=== PATIENT | female | born 1995 | race American Indian/Alaskan Native ===

== ENCOUNTER 2021-01-12 11:51 | Inpatient (IN) ==
[2021-01-12 12:52] LABS: Basophils # (auto) 0.01 K/uL (0-0.2); Basophils % (auto) 0.2 %; Eosinophils # (auto) 0.06 K/uL (0-0.5); Eosinophils % (auto) 1.3 %; Hematocrit (blood only) 41.3 % (37-47); Hemoglobin 13.7 g/dL (12.0-16.0); Immature Granulocytes # (auto) 0.02 K/uL (0.00-0.02); Immature Granulocytes % (auto) 0.4 %; Lymphocytes # (auto) 0.87 K/uL (1.2-3.4); Lymphocytes % (auto) 18.8 %; Mean Corpuscular Hemoglobin 27.9 pg (25-34); Mean Corpuscular Hgb Conc 33.2 g/dL (32-36); Mean Corpuscular Volume 84.1 fL (80-100); Mean Platelet Volume 9.1 fL (7.4-10.4); Monocytes # (auto) 0.46 K/uL (0.11-0.59); Monocytes % (auto) 9.9 %; Neutrophils # (auto) 3.21 K/uL (1.4-6.5); Neutrophils % (auto) 69.4 %; Platelet Count 283 K/uL (130-400); RDW Coefficient of Variation 12.7 % (11.5-14.5); RDW Standard Deviation 38.4 fL (36.4-46.3); Red Blood Count 4.91 M/uL (4.2-5.4); White Blood Count 4.63 K/uL (4.8-10.8)
[2021-01-12 13:08] LABS: Albumin Level 3.7 gm/dl (3.4-5.0); Blood Urea Nitrogen 7 mg/dl (7-18); Carbon Dioxide 26 mmol/L (21-32); Chloride 109 mmol/L (98-107); Est GFR (African American) 148.5 ml/min; Est GFR (Non-African American) 128.1 ml/min; Glucose 82 mg/dl (70-99); Potassium 4.8 mmol/L (3.5-5.1); Sodium 139 mmol/L (136-145)
[2021-01-12 13:11] LABS: Alanine Aminotransferase 20 U/L (12-78); Albumin Globulin Ratio 0.9 (0.9-2); Alkaline Phosphatase 69 U/L (45-117); Aspartate Aminotransferase 17 U/L (15-37); Bilirubin,Total 0.4 mg/dl (0.2-1); Globulin 4.3 gm/dl (2.5-4.0)
[2021-01-12 13:43] LABS: Creatine Kinase 42 U/L (26-192); Creatine Kinase MB < 1.0 ng/ml (0.5-3.6); NT Pro B Type Natriuretic Pept 39 pg/ml (0-450); Troponin I < 0.015 ng/ml (0-0.045)
[2021-01-12] MEDS ORDERED: OPTIRAY 320 125ml IV ONE (13:57)
--- NOTE | 2021-01-12 14:16 | CT Scan Report ---
CT angio chest PE protocol CT DOSE: 362.62 mGycm HISTORY: 25 years-old Female with PE. Acute cough with shortness of breath TECHNIQUE: Multiple CTA images of the chest were obtained after the intravenous administration of 120 ml Optiray. Coronal and sagittal MIPS were obtained from the axial data set and were submitted for review. All measurements were obtained according to NASCET criteria. A dose lowering technique was u tilized adhering to the principles of ALARA. COMPARISON: None. FINDINGS: CTA: The heart is normal in size. No pericardial effusion. There is no thoracic aortic aneurysm or dissect ion. There is patency of the imaged great vessels. No pulmonary emboli identified. Streak artifact fr om the contrast bolus within the right subclavian and brachycephalic veins and SVC limits the study. CT CHEST: Unremarkable thyroid. No adenopathy identified. Small left pleural effusion with mild linear subsegme ntal left lung base consolidation and left basilar groundglass densities suggestive of atelectasis. T here is atelectasis with near complete collapse of the right lung. A small portion of the right upper lobe and superior segment right lower lobe are aerated. No obstructing endobronchial mass identified . No pleural mass identified. There is leftward midline shift. No acute process of the imaged upper abdomen. There is no pneumoperitoneum. Unremarkable soft tissues and breast parenchyma. No acute fracture. IMPRESSION: 1. No pulmonary emboli. 2. Large right pleural effusion occupies the majority of the right hemithorax resulting in near-compl ete collapse of the right lung. There is resultant leftward midline shift. 3. Small left pleural effusion with left lung base atelectasis. 4. No adenopathy. ACT 112: Negative or not required by law. The above report was generated using voice recognition software. It may contain grammatical, syntax o r spelling errors. Electronically signed by: Baldomero Carl M.D. 01/12/2021 2:14 PM
[2021-01-12] MEDS ORDERED: LIDOCAINE 1% LOCAL 20 ML VIAL ONE (15:47)
--- NOTE | 2021-01-12 16:17 | History & Physical Report ---
Date of Service January 12, 2021 Assessment & Plan (1) Pleural effusion: Presents with several weeks of upper back and anterior rib pain followed by shortness of breath, found to have very large right-sided pleural effusion and small left pleural effusion with complete atelectasis of right lung/collapse No weight loss or night sweats, no fevers, very healthy previously. Did travel from [place] last few months. Covid here is negative, no fevers. She is lymphopenic. Could be infectious to include tuberculosis versus malignant versus autoimmune proBNP is negative Pulmonology consult appreciated-placed chest tube in the ER and after draining 2 L total of pleural fluid, she began having significant hypoxia and tachycardia from reexpansion pulmonary edema Placed on 100% FiO2 on high flow nasal cannula and had improvement in symptoms -Admit to PCU -IV morphine as needed for pain -Continue supplemental O2 to keep pulse ox greater than 94% and wean off as tolerated, can use BiPAP if needed as per pulmonology -Follow-up on all pleural fluid studies including AFB, Gram stain culture, cytology, pH and cell count, LDH, glucose -Check quantiferon gold -Airborne and contact/droplet precautions for TB -Clamp chest tube for now -Has small apical pneumothorax on follow-up chest x-ray -Follow chest x-ray in the morning (2) Acute respiratory failure with hypoxia: As above Pulse ox was 98% on room air shortly after chest tubes placed, however about 1 hour later she developed hypoxia to the low 80s and tachypnea and tachycardia secondary to pulmonary edema from the expansion Continue supplemental O2 as above and wean off as tolerated (3) Shortness of breath: As above, secondary to pleural effusion (4) Mediastinal shift: Secondary to right pleural effusion right lung collapse Now improved status post drainage of pleural effusion on the right (5) DVT prophylaxis: SCDs only given chest tube in place Disposition-admit to PCU History of Present Illness Chief Complaint: Shortness of breath Primary Care Provider: Tiny Macias This patient is a 25-year-old female with no significant medical history who is from [place] and 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 She presents to the ER after being seen at [facility] for increasing shortness of breath and cough. She reports she was seen at [facility] about a week or 2 ago with neck and back pain as well as pain under the anterior ribs. She was told at that time it may be from stress and was told to take ibuprofen. She returned there today with increasing shortness of breath and had a chest x-ray which showed a complete white out of the right lung with a large pleural effusion. She came to the ER and had a CT angiogram of the chest which was negative for PE but showed large right pleural effusion occupying majority of the right hemithorax resulting in near complete collapse of the right lung with resultant leftward midline shift, as well as a small left pleural effusion with left lung base atelectasis. There is no adenopathy seen. She had a mild leukopenia with lymphopenia, but otherwise her CMP, troponin, proBNP, and Covid test were all normal/negative. She has been vaccinated against Covid as well as tuberculosis with the BCG vaccine in [place]. She denies any fevers or chills, no night sweats or weight loss. Other than the neck, back, and rib pain described above, she denies any other joint pains or myalgias. No changes in bowel habits, no urinary symptoms. No rashes. [place] came [place] the [place] from [place] in [place] and then traveled back there for about 1 month in September 2020. She has been home here in the [place] since the end of September. She denies any known contacts with tuberculosis or any other illnesses. She has otherwise been very healthy her whole life and has never been hospitalized previously. She does not smoke or vape. She drinks alcohol socially, and does not do any drugs. Pulmonology saw her in the ER and placed a chest tube and initially 1.5 L of clear yellow fluid was drained. Fortunately, she was 98% on room air even prior to having the chest tube placed. Vital signs were otherwise stable. She will be admitted for work-up for large right pleural effusion with chest tube management. I discussed her care with pulmonology at the time of admission. Allergies Allergy/AdvReac Type Severity Reaction Status Date / Time No Known Allergies Allergy Verified 01/12/21 14:59 Home Medications Medication Instructions Recorded Confirmed Type ascorbic acid (vitamin C) [Vitamin 1 g PO DAILY 01/12/21 01/12/21 History C] multivitamin 1 tab PO DAILY 01/12/21 01/12/21 History Past Med/Surg History Medical History No pertinent past medical history Surgical History No pertinent past surgical history Family History (Updated 01/12/21 @ 17:13 by Christy Bal MD) Other Family history non-contributory Social History (Updated 01/12/21 @ 17:14 by Christy Bal MD) Smoking Status: Never smoker Second Hand Exposure: No; Hx Alcohol Use: Yes Alcohol type: beer Alcohol type Comment: Socially, not excessively Hx Substance Use: No Beliefs That Will Affect Care: None Current Living Situation: Other Current Living Situation Comment: Friend current occupational status: student Feels Safe at Home: Yes Assistive Devices: Oxygen - Continuous Review of Systems Review of Systems: All systems reviewed & are unremarkable except as noted in HPI & below Has occasional headaches but works on the computer a lot and attributes it to this No ear pain, no sore throat Positive shortness of breath and musculoskeletal pains as per HPI No chest pain No nausea or vomiting, no abdominal pain, no changes in bowel habits No urinary symptoms Currently has her menses and has some mild suprapubic cramping Physical Exam Constitutional: WD/WN, vitals as above Eyes: PERRL, conjunctivae normal, anicteric sclerae ENMT: external ear and nose normal, oropharynx normal Neck: trachea midline, no thyromegaly Respiratory: normal respiratory effort Auscultation: + diminished lung sounds (At right lower and middle lung goodman, aerated at right upper lung field) Chest tube in place draining clear straw-colored fluid Cardiovascular: RRR, no murmur, no edema Vessels: dorsalis pedis pulses present Chest (Breasts): Chest: normal inspection of chest Gastrointestinal (Abdomen): normal bowel sounds, soft, nontender, no hepatosplenomegaly Musculoskeletal: Extremities: extremities normal to inspection; no cyanosis and no clubbing No tenderness to palpation over neck or shoulders Skin: no rashes, warm and dry Neurologic: moves all extremities and awake; no focal motor deficits Psychiatric: A+Ox3, euthymic affect Lymphatic: no lymphedema, no preauricular lymphadenopathy, no cervical lymphadenopathy and no subclavicular lymphadenopathy Results & Data Results & Data ([facility]) Vital Signs (Past 12 Hours) Vital Signs Temp Pulse Pulse Resp BP BP Pulse Ox 01/12/21 15:30 85 24 99 01/12/21 15:00 81 23 96 01/12/21 14:30 78 24 97 01/12/21 14:00 86 22 95 01/12/21 13:31 97 H 22 97 01/12/21 13:30 94 H 22 113/80 97 01/12/21 13:00 87 21 108/71 95 01/12/21 12:54 89 20 97 01/12/21 12:43 82 23 109/80 98 01/12/21 12:35 88 18 109/80 96 01/12/21 11:53 36.5 C 108 H 17 116/77 96 Laboratory Results 01/12/21 01/12/21 01/12/21 Range/Units 16:24 16:24 16:24 WBC (4.8-10.8) K/uL RBC (4.2-5.4) M/uL Hgb (12.0-16.0) g/dL Hct (37-47) % MCV (80-100) fL MCH (25-34) pg MCHC (32-36) g/dL RDW Std Deviation (36.4-46.3) fL RDW Coeff of Sherice (11.5-14.5) % Plt Count (130-400) K/uL MPV (7.4-10.4) fL Immature Gran % (Auto) % Neut % (Auto) % Lymph % (Auto) % Kendall % (Auto) % Eos % (Auto) % Baso % (Auto) % Neut # (Auto) (1.4-6.5) K/uL Lymph # (Auto) (1.2-3.4) K/uL Kendall # (Auto) (0.11-0.59) K/uL Eos # (Auto) (0-0.5) K/uL Baso # (Auto) (0-0.2) K/uL Immature Gran # (Auto) (0.00-0.02) K/uL Sodium (136-145) mmol/L Potassium (3.5-5.1) mmol/L Chloride (98-107) mmol/L Carbon Dioxide (21-32) mmol/L Anion Gap (3-11) BUN (7-18) mg/dl Creatinine (0.6-1.2) mg/dl Est Cr Clr Drug Dosing Est GFR ( Amer) ml/min Est GFR (Non-Af Amer) ml/min BUN/Creatinine Ratio (10-20) Glucose (70-99) mg/dl Calcium (8.5-10.1) mg/dl Total Bilirubin (0.2-1) mg/dl AST (15-37) U/L ALT (12-78) U/L Alkaline Phosphatase (45-117) U/L Total Creatine Kinase (26-192) U/L CK-MB (CK-2) (0.5-3.6) ng/ml CK/CKMB % Calc Troponin I (0-0.045) ng/ml NT-Pro-B Natriuret Pep (0-450) pg/ml Total Protein (6.4-8.2) gm/dl Albumin (3.4-5.0) gm/dl Globulin (2.5-4.0) gm/dl Albumin/Globulin Ratio (0.9-2) Fluid Neutrophils % Fluid Lymphocytes % Fluid Eosinophils % Fluid Meso/Macro/Kendall % Fluid Comment Pleural Fluid Source Pleural Color Pleural Appearance Pleural pH 7.39 (7.3-7.4) Pleural WBC Pleural RBC Pleural Total Protein Pleural LDH Pleural Glucose Pleural Amylase Pleural Cholesterol Pending COVID-19 Eval Order SARS-CoV-2 (PCR) (Negative) Miscellaneous Test Pending 01/12/21 01/12/21 01/12/21 Range/Units 16:24 13:15 13:15 WBC (4.8-10.8) K/uL RBC (4.2-5.4) M/uL Hgb (12.0-16.0) g/dL Hct (37-47) % MCV (80-100) fL MCH (25-34) pg MCHC (32-36) g/dL RDW Std Deviation (36.4-46.3) fL RDW Coeff of Sherice (11.5-14.5) % Plt Count (130-400) K/uL MPV (7.4-10.4) fL Immature Gran % (Auto) % Neut % (Auto) % Lymph % (Auto) % Kendall % (Auto) % Eos % (Auto) % Baso % (Auto) % Neut # (Auto) (1.4-6.5) K/uL Lymph # (Auto) (1.2-3.4) K/uL Kendall # (Auto) (0.11-0.59) K/uL Eos # (Auto) (0-0.5) K/uL Baso # (Auto) (0-0.2) K/uL Immature Gran # (Auto) (0.00-0.02) K/uL Sodium (136-145) mmol/L Potassium (3.5-5.1) mmol/L Chloride (98-107) mmol/L Carbon Dioxide (21-32) mmol/L Anion Gap (3-11) BUN (7-18) mg/dl Creatinine (0.6-1.2) mg/dl Est Cr Clr Drug Dosing Est GFR ( Amer) ml/min Est GFR (Non-Af Amer) ml/min BUN/Creatinine Ratio (10-20) Glucose (70-99) mg/dl Calcium (8.5-10.1) mg/dl Total Bilirubin (0.2-1) mg/dl AST (15-37) U/L ALT (12-78) U/L Alkaline Phosphatase (45-117) U/L Total Creatine Kinase (26-192) U/L CK-MB (CK-2) (0.5-3.6) ng/ml CK/CKMB % Calc Troponin I (0-0.045) ng/ml NT-Pro-B Natriuret Pep (0-450) pg/ml Total Protein (6.4-8.2) gm/dl Albumin (3.4-5.0) gm/dl Globulin (2.5-4.0) gm/dl Albumin/Globulin Ratio (0.9-2) Fluid Neutrophils % Pending Fluid Lymphocytes % Pending Fluid Eosinophils % Pending Fluid Meso/Macro/Kendall % Pending Fluid Comment Pleural Fluid Source Pending Pleural Color Pending Pleural Appearance Pending Pleural pH (7.3-7.4) Pleural WBC Pending Pleural RBC Pending Pleural Total Protein Pending Pleural LDH Pending Pleural Glucose Pending Pleural Amylase Pending Pleural Cholesterol COVID-19 Eval Order Covid19 at [facility] SARS-CoV-2 (PCR) NEGATIVE (Negative) Miscellaneous Test 01/12/21 01/12/21 01/12/21 Range/Units 12:35 12:35 12:35 WBC 4.63 L (4.8-10.8) K/uL RBC 4.91 (4.2-5.4) M/uL Hgb 13.7 (12.0-16.0) g/dL Hct 41.3 (37-47) % MCV 84.1 (80-100) fL MCH 27.9 (25-34) pg MCHC 33.2 (32-36) g/dL RDW Std Deviation 38.4 (36.4-46.3) fL RDW Coeff of Sherice 12.7 (11.5-14.5) % Plt Count 283 (130-400) K/uL MPV 9.1 (7.4-10.4) fL Immature Gran % (Auto) 0.4 % Neut % (Auto) 69.4 % Lymph % (Auto) 18.8 % Kendall % (Auto) 9.9 % Eos % (Auto) 1.3 % Baso % (Auto) 0.2 % Neut # (Auto) 3.21 (1.4-6.5) K/uL Lymph # (Auto) 0.87 L (1.2-3.4) K/uL Kendall # (Auto) 0.46 (0.11-0.59) K/uL Eos # (Auto) 0.06 (0-0.5) K/uL Baso # (Auto) 0.01 (0-0.2) K/uL Immature Gran # (Auto) 0.02 (0.00-0.02) K/uL Sodium 139 (136-145) mmol/L Potassium 4.8 (3.5-5.1) mmol/L Chloride 109 H (98-107) mmol/L Carbon Dioxide 26 (21-32) mmol/L Anion Gap 4.0 (3-11) BUN 7 (7-18) mg/dl Creatinine 0.58 L (0.6-1.2) mg/dl Est Cr Clr Drug Dosing Not Reportable Est GFR ( Amer) 148.5 ml/min Est GFR (Non-Af Amer) 128.1 ml/min BUN/Creatinine Ratio 12.0 (10-20) Glucose 82 (70-99) mg/dl Calcium 9.0 (8.5-10.1) mg/dl Total Bilirubin 0.4 (0.2-1) mg/dl AST 17 (15-37) U/L ALT 20 (12-78) U/L Alkaline Phosphatase 69 (45-117) U/L Total Creatine Kinase 42 (26-192) U/L CK-MB (CK-2) < 1.0 (0.5-3.6) ng/ml CK/CKMB % Calc TNP Troponin I < 0.015 (0-0.045) ng/ml NT-Pro-B Natriuret Pep 39 (0-450) pg/ml Total Protein 8.0 (6.4-8.2) gm/dl Albumin 3.7 (3.4-5.0) gm/dl Globulin 4.3 H (2.5-4.0) gm/dl Albumin/Globulin Ratio 0.9 (0.9-2) Fluid Neutrophils % Fluid Lymphocytes % Fluid Eosinophils % Fluid Meso/Macro/Kendall % Fluid Comment Pleural Fluid Source Pleural Color Pleural Appearance Pleural pH (7.3-7.4) Pleural WBC Pleural RBC Pleural Total Protein Pleural LDH Pleural Glucose Pleural Amylase Pleural Cholesterol COVID-19 Eval Order SARS-CoV-2 (PCR) (Negative) Miscellaneous Test Diagnostic Findings Chest CTA 01/12/21 13:00 CT angio chest PE protocol CT DOSE: 362.62 mGycm HISTORY: 25 years-old Female with PE. Acute cough with shortness of breath TECHNIQUE: Multiple CTA images of the chest were obtained after the intravenous administration of 120 ml Optiray. Coronal and sagittal MIPS were obtained from the axial data set and were submitted for review. All measurements were obtained according to NASCET criteria. A dose lowering technique was utilized adhering to the principles of ALARA. COMPARISON: None. FINDINGS: CTA: The heart is normal in size. No pericardial effusion. There is no thoracic aortic aneurysm or dissection. There is patency of the imaged great vessels. No pulmonary emboli identified. Streak artifact from the contrast bolus within the right subclavian and brachycephalic veins and SVC limits the study. CT CHEST: Unremarkable thyroid. No adenopathy identified. Small left pleural effusion with mild linear subsegmental left lung base consolidation and left basilar groundglass densities suggestive of atelectasis. There is atelectasis with near complete collapse of the right lung. A small portion of the right upper lobe and superior segment right lower lobe are aerated. No obstructing endobronchial mass identified. No pleural mass identified. There is leftward midline shift. No acute process of the imaged upper abdomen. There is no pneumoperitoneum. Unremarkable soft tissues and breast parenchyma. No acute fracture. IMPRESSION: 1. No pulmonary emboli. 2. Large right pleural effusion occupies the majority of the right hemithorax resulting in near-complete collapse of the right lung. There is resultant leftward midline shift. 3. Small left pleural effusion with left lung base atelectasis. 4. No adenopathy. ACT 112: Negative or not required by law. The above report was generated using voice recognition software. It may contain grammatical, syntax or spelling errors. Electronically signed by: Baldomero Carl M.D. 01/12/2021 2:14 PM Code Status & VTE Plan Code Status Full code VTE Prophylaxis Plan VTE Prophylaxis will be ordered: Yes PG Care Time/CCT Total # of Minutes Spent Total Time Spent with Patient: Total time spent is greater than 50% in coordination of care (as documented) at patient's floor/unit and/or counseling patient: Coding Level of Care Code 04175 Initial Inpt Care Lvl 3 Diagnoses Pleural effusion J90 Acute respiratory failure with hypoxia J96.01 Shortness of breath R06.02 Mediastinal shift R93.89 DVT prophylaxis Z29.9
--- NOTE | 2021-01-12 17:15 | Procedure Note ---
Procedure Note Date of Service January 12, 2021 Procedure: Pigtail chest tube insertion [employer] Investigator: Dr. Azeb Pena Indication: Right-sided pleural effusion with mediastinal shift to the left Consent: Signed by patient and verified with timeout prior to procedure Anesthesia: 1% lidocaine without epinephrine local Procedure: Consent was verified and timeout performed. Appropriate imaging studies were reviewed prior to the procedure. Patient was placed in a seated position. Appropriate site above the diaphragm on the right midaxillary line fourth intercostal space for chest tube insertion was selected. The skin was prepped and draped in normal sterile fashion. Lidocaine was used for local analgesia. Fluid was aspirated via the finder needle. A small skin yfn was made with the scalpel and the catheter over the needle apparatus was advanced over the rib into the pleural space. With the help of guidewire and Seldinger technique, 14 Kiswahili pigtail catheter was inserted and connected to Pleur-evac. 1 L serous cloudy fluid was drained into the Terri container No air leak appreciated after that. Chest x-ray to follow Fluid was sent for labs, adenosine deaminase, AFB culture, culture and cytology. The patient tolerated the procedure without obvious complication Complications: None Blood loss: Less than 2 cc. Coding CPT Codes Pulmonary/Thoracic - Pulmonary and Thoracic: 61800 Tube thoracostomy ([id number]) Pulmonary/Thoracic - Pulmonary and Thoracic: 67825 Pleural drainage w/imaging ([id number]) [facility] [place] Procedure Codes (Charges) Pulmonary/Thoracic Procedure 1: Pulmonary and Thoracic: 47377 Tube thoracostomy Procedure 2: Pulmonary and Thoracic: 26591 Pleural drainage w/imaging
--- NOTE | 2021-01-12 17:18 | Pulmonary Consultation ---
Date of Consultation January 12, 2021 Assessment & Plan (1) Pleural effusion: CT chest 01/12/2021 personally reviewed: Large right-sided pleural effusion with mediastinal shift to the left Compression atelectasis of the right middle, right lower and partial upper lobe No significant mediastinal adenopathy --Large right-sided pleural effusion with mediastinal shift to the left Etiology is likely infectious vs malignancy (unlikely) Given being an endemic area with high TB and recent travel Tuberculosis still in the differential Plan would be to have a chest tube placed. Not to take out more than 1.5 L at a time. COVID-19 PCR negative Follow-up procalcitonin Plan: Keep the patient in airborne isolation for possible TB I will put a chest tube in for the large right-sided pleural effusion Follow-up [employer] sputum culture and smear Risk and benefits of the procedure explained to patient in depth. Consent signed, witnessed and put in the chart Please note the above document was generated using voice recognition software. It may contain grammatical, syntax or spelling errors.Any formal questions or concerns about the content, text or information contained within the body of this dictation should be directly addressed to the provider for clarification. (2) Shortness of breath: (3) Cough: (4) Abnormal chest CT: (5) Atelectasis of left lung: (6) Mediastinal shift: History of Present Illness History of Present Illness 25-year-old female with no significant past medical history presented to the hospital with complaints of dry cough and worsening shortness of breath going on for approximately 4 weeks. Patient went to urgent care 4 weeks ago with cough she was given symptomatic management no antibiotics and no chest x-ray was done at that time. Patient did not get any relief and she went again to the urgent care and found out that she had white out of the right side of the lung. She was sent to the ED. Pulmonary consulted for the right-sided pleural effusion At the time of examination patient states that it has been approximately since August that she has been having issues running. She used to get short of tamiko ath very easily. It was not associated with wheezing. She did visit [place] back in September 2020 just prior to the outbreak of Covid 19- second wave. Does complain of mild chest pain especially when taking deep breath on the right side going to the right scapula. Cough is dry. She is not able to bring up any phlegm. No night sweats, no weight loss Denies any headache, no blurry vision. No nausea or vomiting. No dysuria, no diarrhea. Denies any known exposure to people with TB. Denies any previous history of tuberculosis or latent TB. Patient is originally from [place]. Last travel was September 2020. Prior to that it was back in 2019. No personal history of any autoimmune disease. Social history: Has tried smoking. Not a heavy smoker. No vaping, social alcohol not a heavy drinker. No illicit drug use. Is a student Pets: None Allergies: Denies Asthma: No personal or family history of asthma Lung cancer: No history of lung cancer in the family Allergies Allergy/AdvReac Type Severity Reaction Status Date / Time No Known Allergies Allergy Verified 01/12/21 14:59 Home Medications Medication Instructions Recorded Confirmed Type ascorbic acid (vitamin C) [Vitamin 1 g PO DAILY 01/12/21 01/12/21 History C] multivitamin 1 tab PO DAILY 01/12/21 01/12/21 History Patient History Medical History No pertinent past medical history Surgical History No pertinent past surgical history Family History (Updated 01/12/21 @ 17:13 by Christy Bal MD) Other Family history non-contributory Social History (Updated 01/12/21 @ 17:14 by Christy Bal MD) Smoking Status: Never smoker Second Hand Exposure: No; Do You Dip or Chew Tobacco: No; Tobacco Cessation Education Requested by Patient: No Hx Alcohol Use: Yes Alcohol type: beer Alcohol type Comment: Socially, not excessively Hx Substance Use: No Beliefs That Will Affect Care: None Current Living Situation: Other Current Living Situation Comment: Friend current occupational status: student Other Information That Helps Us Care for You: No Feels Safe at Home: Yes Safety Concerns: Feels Safe At This Time Assistive Devices: None Review of Systems Review of Systems: All systems reviewed & are unremarkable except as noted in HPI & below Physical Exam Physical Exam: Constitutional: No acute distress HEENT: EOMI, PERRLA Respiratory system: Decreased air entry on the right side, no wheeze, no rhonchi, no crackles CVS: S1-S2 positive, no murmurs or gallops, tachycardia Abdomen: Soft, nontender, nondistended, positive bowel sounds x4 Extremities: +2 pulses bilaterally radialis/ dorsalis pedis, no cyanosis, no edema Neuro: Awake alert oriented x3 Psych: Normal mood and affect G/U: No Jaimes Skin: no rashes, warm and dry Lymphatic: no cervical or axillary lymphadenopathy Results & Data Results & Data ([facility]) Vital Signs (Past 12 Hours) Vital Signs Temp Pulse Pulse Resp BP BP Pulse Ox 01/12/21 15:30 85 24 99 01/12/21 15:00 81 23 96 01/12/21 14:30 78 24 97 01/12/21 14:00 86 22 95 01/12/21 13:31 97 H 22 97 01/12/21 13:30 94 H 22 113/80 97 01/12/21 13:00 87 21 108/71 95 01/12/21 12:54 89 20 97 01/12/21 12:43 82 23 109/80 98 01/12/21 12:35 88 18 109/80 96 01/12/21 11:53 36.5 C 108 H 17 116/77 96 01/12/21 12:35 01/12/21 12:35 PG Care Time/CCT Total # of Minutes Spent Total Time Spent with Patient: Total time spent is greater than 50% in coordination of care (as documented) at patient's floor/unit and/or counseling patient: Coding Level of Care Code 10797 Inpt Consult Level 4 Diagnoses Pleural effusion J90 Shortness of breath R06.02 Cough R[address] R93.89 Atelectasis of left lung J98.11 Mediastinal shift R93.89
--- NOTE | 2021-01-12 17:29 | Emergency Department Note ---
Impression & Plan Shortness of breath, Pleural effusion, Abnormal chest CT ED Provider Note NAME: MILAN KAHN AGE: 25 SEX: F : 1995 ARRIVES VIA: Walk-In INFORMANT: Patient, sig other ED PROVIDER(S): Reynaldo Victoria MD CHIEF COMPLAINT: Shortness of breath, abnormal CXR HPI: This is a 25-year-old female sent in by [facility] over concerns that the patient has an abnormal chest x-ray. Upon arrival to the emergency department the patient reports that she has been short of breath for the past month along with tightness in her upper back neck and right side of her chest. The patient is from [place] and came to the [facility] in 2019. She reports exertion makes her shortness of breath worse and rest makes it better. She has not taken anything for the shortness of breath prior to arrival. ROS: See above HPI for pertinent positives & negatives. A total of 10 systems reviewed and were otherwise negative. PAST MEDICAL HISTORY: See Below PAST SURGICAL HISTORY: See Below FAMILY HISTORY: See Below SOCIAL HISTORY: See Below HOME MEDICATIONS: See Below ALLERGIES: See Below VITALS: See Below PHYSICAL EXAMINATION: VITAL SIGNS - Vital signs and nursing notes were reviewed. GENERAL - 25-year-old female appearing stated age who is in no acute distress. Communicates well with provider and answers questions appropriately. SKIN - Without rashes. HEAD - NC/AT. EYES - PERRL with EOMI bilaterally. Sclera anicteric. Palpebral conjunctiva pink and moist with no injection noted. EARS - No deformities of external structures noted on gross examination bilaterally. NOSE - Midline and without cyanosis. No epistaxis or purulent drainage noted. Septum midline without deviation or septal hematoma noted. MOUTH/OROPHARYNX - Without perioral cyanosis. Buccal mucosa pink and moist and without leukoplakia. Tongue midline with equal elevation of palate bilaterally. No tonsillar hypertrophy, erythema, or exudates noted. NECK - Neck with FROM. Supple to palpation. LUNGS - Chest wall symmetric without accessory muscle use, intercostals retractions, or central cyanosis. Normal vesicular breath sounds CTA B/L. No wheezes, rales, or rhonchi appreciated. CARDIAC - RRR with S1/S2. No murmur, rubs, or gallops appreciated. ABDOMEN - Abdominal contour without pulsations or visible masses. BS normoactive all four quadrants. No tenderness, palpable masses, hepatospleno megaly, or ascites noted. EXTREMITIES - No clubbing or peripheral cyanosis. No pretibial edema present. +3/5 radial, posterior tibial, and dorsalis pedis pulses palpated throughout. +5/5 strength noted in UE/LE bilaterally. NEUROLOGIC - Cranial nerves II through XII grossly intact. Sensory intact to light touch throughout. Patellar reflexes +2/4. PSYCH - A&Ox3 and cooperates fully with examiner. Pt is very pleasant and interacts well with examiner. MEDICAL DECISION MAKING: Patient was seen and evaluated as above in room C7. Review was performed of nursing notes and vital signs. I did review pertinent previous visits and patient history. After obtaining a thorough history and physical examination the above work up was performed. Is a 25-year-old female who presents emergency department complaining of abnormal chest x-ray. Using shared medical decision making with the patient she was sent for CAT scan of the chest. This is concerning for a large pleural effusion. In addition the patient does not have an elevation in her white blood cell count and she has a normal troponin. I did discuss the case with pulmonology who asked that the patient be admitted to the medicine service. An order was placed for continuous cardiac monitoring. The monitor shows a rate of 85 with Normal Sinus rhythm. The patient was evaluated during a period of high volume and high acuity during the global COVID-19 pandemic, and that diagnosis was suspected/considered upon their initial presentation. Their evaluation, treatment and testing was consistent with current guidelines for patients who present with complaints or symptoms that may be related to COVID-19. Patient was seen while provider was wearing PPE. Triage Nursing notes reviewed. Prior medical records reviewed Vital Signs: reviewed and remarkable for no significant abnormalities Differential diagnosis: Cardiac ischemia, aortic dissection, pulmonary embolism, pneumothorax, pneumonia, pericarditis, myocarditis, esophageal rupture, GERD, cholecystitis, pancreatitis, musculoskeletal, as well as other pathologies. ER treatment provided: See below Laboratory studies: As stated above and show below. Imaging studies: See below Consultation(s): Pulmonary Internal Medicine Past Med/Surg History Medical History No pertinent past medical history Surgical History No pertinent past surgical history Family History (Updated 01/12/21 @ 17:13 by Christy Bal MD) Other Family history non-contributory Social History (Updated 01/12/21 @ 17:14 by Christy Bal MD) Smoking Status: Never smoker Hx Alcohol Use: Yes Alcohol type Comment: Socially, not excessively Hx Substance Use: No current occupational status: student Feels Safe at Home: Yes Allergies Allergies Allergy/AdvReac Type Severity Reaction Status Date / Time No Known Allergies Allergy Verified 01/12/21 14:59 Home Meds Home Medications Medication Instructions Recorded Confirmed ascorbic acid (vitamin C) [Vitamin 1 g PO DAILY 01/12/21 01/12/21 C] multivitamin 1 tab PO DAILY 01/12/21 01/12/21 Results & Data (ED) Vital Signs Vital Signs - 24 hr 01/12/21 11:53 01/12/21 12:35 01/12/21 12:43 Temperature 36.5 C Temperature Source Temporal Artery Scan Pulse Rate 108 H 82 Pulse Rate [Apical] 88 Pulse Rate from SpO2 Sensor 84 Pulse Rhythm Regular Pulse Rhythm [Apical] Regular Pulse Strength Normal Pulse Strength [Apical] Normal Respiratory Rate 17 18 23 Respiratory Effort / Characteristics Non-Labored Spontaneous Non-Labored Spontaneous Respiratory Depth Normal Normal Blood Pressure 116/77 109/80 Blood Pressure [Left Arm] 109/80 Blood Pressure Mean 90 89 Blood Pressure Mean [Left Arm] 89 Blood Pressure Position [Left Arm] Sitting Pulse Oximetry 96 96 98 Oxygen Delivery Method Room Air Room Air Sepsis Recent Fever Within 48 Hours No Sepsis New/Unexplained Change in Mental Status No Sepsis Action Taken by Nursing No Action Required 01/12/21 12:54 01/12/21 13:00 01/12/21 13:30 Temperature Temperature Source Pulse Rate 89 87 94 H Pulse Rate [Apical] Pulse Rate from SpO2 Sensor 88 90 92 H Pulse Rhythm Pulse Rhythm [Apical] Pulse Strength Pulse Strength [Apical] Respiratory Rate 20 21 22 Respiratory Effort / Characteristics Respiratory Depth Blood Pressure 108/71 113/80 Blood Pressure [Left Arm] Blood Pressure Mean 83 91 Blood Pressure Mean [Left Arm] Blood Pressure Position [Left Arm] Pulse Oximetry 97 95 97 Oxygen Delivery Method Sepsis Recent Fever Within 48 Hours Sepsis New/Unexplained Change in Mental Status Sepsis Action Taken by Nursing 01/12/21 13:31 01/12/21 14:00 01/12/21 14:30 Temperature Temperature Source Pulse Rate 97 H 86 78 Pulse Rate [Apical] Pulse Rate from SpO2 Sensor 95 H 86 76 Pulse Rhythm Pulse Rhythm [Apical] Pulse Strength Pulse Strength [Apical] Respiratory Rate 22 22 24 Respiratory Effort / Characteristics Respiratory Depth Blood Pressure Blood Pressure [Left Arm] Blood Pressure Mean Blood Pressure Mean [Left Arm] Blood Pressure Position [Left Arm] Pulse Oximetry 97 95 97 Oxygen Delivery Method Sepsis Recent Fever Within 48 Hours Sepsis New/Unexplained Change in Mental Status Sepsis Action Taken by Nursing 01/12/21 15:00 01/12/21 15:30 Temperature Temperature Source Pulse Rate 81 85 Pulse Rate [Apical] Pulse Rate from SpO2 Sensor 82 85 Pulse Rhythm Pulse Rhythm [Apical] Pulse Strength Pulse Strength [Apical] Respiratory Rate 23 24 Respiratory Effort / Characteristics Respiratory Depth Blood Pressure Blood Pressure [Left Arm] Blood Pressure Mean Blood Pressure Mean [Left Arm] Blood Pressure Position [Left Arm] Pulse Oximetry 96 99 Oxygen Delivery Method Sepsis Recent Fever Within 48 Hours Sepsis New/Unexplained Change in Mental Status Sepsis Action Taken by Long-Term Medications Current Medication List: was personally reviewed by me Laboratory Data Attestation: I reviewed the patient's lab results. Result diagrams: 01/12/21 12:35 01/12/21 12:35 Lab Results 01/12/21 01/12/21 01/12/21 Range/Units 12:35 12:35 12:35 WBC 4.63 L (4.8-10.8) K/uL RBC 4.91 (4.2-5.4) M/uL Hgb 13.7 (12.0-16.0) g/dL Hct 41.3 (37-47) % MCV 84.1 (80-100) fL MCH 27.9 (25-34) pg MCHC 33.2 (32-36) g/dL RDW Std Deviation 38.4 (36.4-46.3) fL RDW Coeff of Sherice 12.7 (11.5-14.5) % Plt Count 283 (130-400) K/uL MPV 9.1 (7.4-10.4) fL Immature Gran % (Auto) 0.4 % Neut % (Auto) 69.4 % Lymph % (Auto) 18.8 % Dawson % (Auto) 9.9 % Eos % (Auto) 1.3 % Baso % (Auto) 0.2 % Neut # (Auto) 3.21 (1.4-6.5) K/uL Lymph # (Auto) 0.87 L (1.2-3.4) K/uL Dawson # (Auto) 0.46 (0.11-0.59) K/uL Eos # (Auto) 0.06 (0-0.5) K/uL Baso # (Auto) 0.01 (0-0.2) K/uL Immature Gran # (Auto) 0.02 (0.00-0.02) K/uL Sodium 139 (136-145) mmol/L Potassium 4.8 (3.5-5.1) mmol/L Chloride 109 H (98-107) mmol/L Carbon Dioxide 26 (21-32) mmol/L Anion Gap 4.0 (3-11) BUN 7 (7-18) mg/dl Creatinine 0.58 L (0.6-1.2) mg/dl Est Cr Clr Drug Dosing Not Reportable Est GFR ( Amer) 148.5 ml/min Est GFR (Non-Af Amer) 128.1 ml/min BUN/Creatinine Ratio 12.0 (10-20) Glucose 82 (70-99) mg/dl Calcium 9.0 (8.5-10.1) mg/dl Total Bilirubin 0.4 (0.2-1) mg/dl AST 17 (15-37) U/L ALT 20 (12-78) U/L Alkaline Phosphatase 69 (45-117) U/L Total Creatine Kinase 42 (26-192) U/L CK-MB (CK-2) < 1.0 (0.5-3.6) ng/ml CK/CKMB % Calc TNP Troponin I < 0.015 (0-0.045) ng/ml NT-Pro-B Natriuret Pep 39 (0-450) pg/ml Total Protein 8.0 (6.4-8.2) gm/dl Albumin 3.7 (3.4-5.0) gm/dl Globulin 4.3 H (2.5-4.0) gm/dl Albumin/Globulin Ratio 0.9 (0.9-2) Fluid Comment Pleural pH (7.3-7.4) COVID-19 Eval Order SARS-CoV-2 (PCR) (Negative) 01/12/21 01/12/21 01/12/21 Range/Units 13:15 13:15 16:24 WBC (4.8-10.8) K/uL RBC (4.2-5.4) M/uL Hgb (12.0-16.0) g/dL Hct (37-47) % MCV (80-100) fL MCH (25-34) pg MCHC (32-36) g/dL RDW Std Deviation (36.4-46.3) fL RDW Coeff of Sherice (11.5-14.5) % Plt Count (130-400) K/uL MPV (7.4-10.4) fL Immature Gran % (Auto) % Neut % (Auto) % Lymph % (Auto) % Dawson % (Auto) % Eos % (Auto) % Baso % (Auto) % Neut # (Auto) (1.4-6.5) K/uL Lymph # (Auto) (1.2-3.4) K/uL Dawson # (Auto) (0.11-0.59) K/uL Eos # (Auto) (0-0.5) K/uL Baso # (Auto) (0-0.2) K/uL Immature Gran # (Auto) (0.00-0.02) K/uL Sodium (136-145) mmol/L Potassium (3.5-5.1) mmol/L Chloride (98-107) mmol/L Carbon Dioxide (21-32) mmol/L Anion Gap (3-11) BUN (7-18) mg/dl Creatinine (0.6-1.2) mg/dl Est Cr Clr Drug Dosing Est GFR ( Amer) ml/min Est GFR (Non-Af Amer) ml/min BUN/Creatinine Ratio (10-20) Glucose (70-99) mg/dl Calcium (8.5-10.1) mg/dl Total Bilirubin (0.2-1) mg/dl AST (15-37) U/L ALT (12-78) U/L Alkaline Phosphatase (45-117) U/L Total Creatine Kinase (26-192) U/L CK-MB (CK-2) (0.5-3.6) ng/ml CK/CKMB % Calc Troponin I (0-0.045) ng/ml NT-Pro-B Natriuret Pep (0-450) pg/ml Total Protein (6.4-8.2) gm/dl Albumin (3.4-5.0) gm/dl Globulin (2.5-4.0) gm/dl Albumin/Globulin Ratio (0.9-2) Fluid Comment Pleural pH (7.3-7.4) COVID-19 Eval Order Covid19 at [facility] SARS-CoV-2 (PCR) NEGATIVE (Negative) 01/12/21 Range/Units 16:24 WBC (4.8-10.8) K/uL RBC (4.2-5.4) M/uL Hgb (12.0-16.0) g/dL Hct (37-47) % MCV (80-100) fL MCH (25-34) pg MCHC (32-36) g/dL RDW Std Deviation (36.4-46.3) fL RDW Coeff of Sherice (11.5-14.5) % Plt Count (130-400) K/uL MPV (7.4-10.4) fL Immature Gran % (Auto) % Neut % (Auto) % Lymph % (Auto) % Dawson % (Auto) % Eos % (Auto) % Baso % (Auto) % Neut # (Auto) (1.4-6.5) K/uL Lymph # (Auto) (1.2-3.4) K/uL Dawson # (Auto) (0.11-0.59) K/uL Eos # (Auto) (0-0.5) K/uL Baso # (Auto) (0-0.2) K/uL Immature Gran # (Auto) (0.00-0.02) K/uL Sodium (136-145) mmol/L Potassium (3.5-5.1) mmol/L Chloride (98-107) mmol/L Carbon Dioxide (21-32) mmol/L Anion Gap (3-11) BUN (7-18) mg/dl Creatinine (0.6-1.2) mg/dl Est Cr Clr Drug Dosing Est GFR ( Amer) ml/min Est GFR (Non-Af Amer) ml/min BUN/Creatinine Ratio (10-20) Glucose (70-99) mg/dl Calcium (8.5-10.1) mg/dl Total Bilirubin (0.2-1) mg/dl AST (15-37) U/L ALT (12-78) U/L Alkaline Phosphatase (45-117) U/L Total Creatine Kinase (26-192) U/L CK-MB (CK-2) (0.5-3.6) ng/ml CK/CKMB % Calc Troponin I (0-0.045) ng/ml NT-Pro-B Natriuret Pep (0-450) pg/ml Total Protein (6.4-8.2) gm/dl Albumin (3.4-5.0) gm/dl Globulin (2.5-4.0) gm/dl Albumin/Globulin Ratio (0.9-2) Fluid Comment Pleural pH 7.39 (7.3-7.4) COVID-19 Eval Order SARS-CoV-2 (PCR) (Negative) Administered Medications Discontinued Medications Ioversol (Optiray 320 125ml) 120 ml IV ONCE ONE Stop: 01/12/21 13:58 Last Admin: 01/12/21 13:58 Dose: 120 ml Documented by: [id number] Imaging Data Radiologist's Impression: Chest CTA 01/12/21 13:00 CT angio chest PE protocol CT DOSE: 362.62 mGycm HISTORY: 25 years-old Female with PE. Acute cough with shortness of breath TECHNIQUE: Multiple CTA images of the chest were obtained after the intravenous administration of 120 ml Optiray. Coronal and sagittal MIPS were obtained from the axial data set and were submitted for review. All measurements were obtained according to NASCET criteria. A dose lowering technique was utilized adhering to the principles of ALARA. COMPARISON: None. FINDINGS: CTA: The heart is normal in size. No pericardial effusion. There is no thoracic aortic aneurysm or dissection. There is patency of the imaged great vessels. No pulmonary emboli identified. Streak artifact from the contrast bolus within the right subclavian and brachycephalic veins and SVC limits the study. CT CHEST: Unremarkable thyroid. No adenopathy identified. Small left pleural effusion with mild linear subsegmental left lung base consolidation and left basilar groundglass densities suggestive of atelectasis. There is atelectasis with near complete collapse of the right lung. A small portion of the right upper lobe and superior segment right lower lobe are aerated. No obstructing endobronchial mass identified. No pleural mass identified. There is leftward midline shift. No acute process of the imaged upper abdomen. There is no pneumoperitoneum. Unremarkable soft tissues and breast parenchyma. No acute fracture. IMPRESSION: 1. No pulmonary emboli. 2. Large right pleural effusion occupies the majority of the right hemithorax resulting in near-complete collapse of the right lung. There is resultant leftward midline shift. 3. Small left pleural effusion with left lung base atelectasis. 4. No adenopathy. ACT 112: Negative or not required by law. The above report was generated using voice recognition software. It may contain grammatical, syntax or spelling errors. Electronically signed by: Baldomero Carl M.D. 01/12/2021 2:14 PM Discharge Plan Visit Data Chief Complaint: Abnormal Labs/Diagnostic Testing Stated Complaint: FLUID IN RIGHT SIDE OF CHEST,REF BY DOC ED Provider: Reynaldo Victoria Discharge Problem: Shortness of breath, Pleural effusion, Abnormal chest CT Forms Stand Alone Forms: My [facility] Prescriptions Prescriptions: No Action multivitamin Tablet 1 tab PO DAILY RF: 0 Vitamin C Powder 1 g PO DAILY RF: 0
[2021-01-12 17:42] LABS: Glucose Pleural Fluid 76 mg/dl
[2021-01-12 17:51] LABS: Amylase Pleural Fluid 60 U/L; LDH Pleural Fluid 244 U/L; Total Protein Pleural Fluid 5.4 g/dl
--- NOTE | 2021-01-12 17:57 | XRay Report ---
SINGLE VIEW CHEST CLINICAL HISTORY: Chest tube placement. FINDINGS: An AP, portable, upright chest radiograph is correlated with chest CT dated 01/12/2021. The cardiomediastinal silhouette is unremarkable. A pigtail chest tube has been placed at the right lung base. There is a moderate residual pleural effusion. This has significantly decreased in size from to day's earlier examination. A small pleural effusion is seen at the left lung base. Persistent atelect asis is noted in the right upper lobe. There is reexpansion edema suggested in the right lung. There is a small right apical pneumothorax with approximately 8 mm of pleural separation. The bony thorax i s grossly intact. IMPRESSION: 1. A chest tube has been placed at the right lung base. 2. Small right apical pneumothorax. 3. There is a moderate residual right pleural effusion. This has significantly decreased in size from today's CT scan. 4. There is reexpansion edema noted in the right lung. 5. A small pleural effusion is seen on the left.. ACT 112: Negative or not required by law. Electronically signed by: Manuel Maravilla M.D. 01/12/2021 5:55 PM
[2021-01-12 18:08] LABS: Albumin Level 3.7 gm/dl (3.4-5.0); Bilirubin,Total 0.5 mg/dl (0.2-1); Total Protein 7.9 gm/dl (6.4-8.2)
[2021-01-12 18:16] LABS: Pregnancy Test, Serum Negative (Negative)
[2021-01-12] MEDS ORDERED: ACETAMINOPHEN 325 MG TAB PO PRN (18:18)
[2021-01-12] MEDS ORDERED: ONDANSETRON INJ 2 MG/ML 2 ML VIAL IV PRN (18:18)
[2021-01-12] MEDS ORDERED: POLYETHYLENE (MIRALAX) 17 GM PACK PO PRN (18:18)
[2021-01-12] MEDS: MoRPHine SULFATE 2 MG/ML CARP IV PRN (18:27)
[2021-01-12 18:42] LABS: Appearance Pleural Fluid CLEAR; Color Pleural Fluid YELLOW; RBC Pleural Fluid (A) < 3000 /uL; Source Pleural Fluid RIGHT LUNG; WBC Pleural Fluid (A) 1044 /uL
--- NOTE | 2021-01-12 19:11 | Communication Note ---
Date of Service: January 12, 2021 Pulmonary addendum: Was called to evaluate the patient as she was complaining of right-sided chest pain and was getting hypoxic and tachycardic Patient chest tube had drained 2 L. It was already been clamped. Chest x-ray post chest tube shows moderate right-sided pleural effusion with small apical pneumo. Patient had gotten 2 mg of morphine just prior to me examining her. She was breathing in the high teens. Stated that she felt better compared to few minutes ago. Saturation was 99%. Heart rate was low 100s. Stat chest x-ray has been ordered. Symptoms likely reexpansion pulmonary edema on the right side. Continue supplemental oxygenation with high flow and titrate down FiO2. If the patient is still in distress recommend BiPAP 10/6 50% with a backup rate of 14. Can increase the EPAP gradually if oxygenation is still an issue. Morphine for pain Plan was discussed with Dr. Bal. Please note the above document was generated using voice recognition software. It may contain grammatical, syntax or spelling errors.Any formal questions or concerns about the content, text or information contained within the body of this dictation should be directly addressed to the provider for clarification. Coding Level of Care Code None
--- NOTE | 2021-01-12 19:21 | XRay Report ---
SINGLE VIEW CHEST CLINICAL HISTORY: Dyspnea. Hypoxia. FINDINGS: An AP, portable, upright chest radiograph is correlated with chest x-ray and chest CT perfo rmed earlier the same day 01/12/2021. The cardiomediastinal silhouette is unremarkable. A pigtail ches t tube is again seen at the right lung base. There is a moderate residual pleural effusion. This appe ars to have modestly increased in size from today's earlier x-ray. There is increasing consolidation/ edema throughout the right lung. A small left pleural effusion is noted. A small right apical pneumot horax has modestly increased in size. The bony thorax is grossly intact. IMPRESSION: 1. A right-sided chest tube is unchanged in position. 2. A small right apical pneumothorax has modestly increased in size from today's earlier x-ray. 3. There is a moderate residual right pleural effusion. This appears modestly increased in size from today's earlier x-ray. 4. There is increasing consolidation/edema seen throughout the right lung. 5. A small pleural effusion is seen on the left. ACT 112: Negative or not required by law. Electronically signed by: Manuel Maravilla M.D. 01/12/2021 7:20 PM
[2021-01-12] MEDS: cefTRIAXone SODIUM 1,000 MG in DEXTROSE 5% 50 ML IV SCH (20:01)
[2021-01-12 21:01] LABS: Basophils, Fluid 0 %; Eosinophils, Fluid 0 %; Lymphocytes, Fluid 85 %; Mono,Macrophage,Mesothelial 15 %; Neutrophils, Fluid 0 %
[2021-01-13] MEDS: MoRPHine SULFATE 2 MG/ML CARP IV PRN ×5 (02:43→20:31)
[2021-01-13 06:38] LABS: Basophils # (auto) 0.01 K/uL (0-0.2); Basophils % (auto) 0.2 %; Eosinophils # (auto) 0.03 K/uL (0-0.5); Eosinophils % (auto) 0.5 %; Hematocrit (blood only) 42.5 % (37-47); Hemoglobin 14.2 g/dL (12.0-16.0); Immature Granulocytes # (auto) 0.01 K/uL (0.00-0.02); Immature Granulocytes % (auto) 0.2 %; Lymphocytes # (auto) 1.03 K/uL (1.2-3.4); Lymphocytes % (auto) 18.8 %; Mean Corpuscular Hemoglobin 27.5 pg (25-34); Mean Corpuscular Hgb Conc 33.4 g/dL (32-36); Mean Corpuscular Volume 82.2 fL (80-100); Mean Platelet Volume 9.2 fL (7.4-10.4); Monocytes # (auto) 0.79 K/uL (0.11-0.59); Monocytes % (auto) 14.4 %; Neutrophils % (auto) 65.9 %; Platelet Count 284 K/uL (130-400); RDW Coefficient of Variation 12.7 % (11.5-14.5); RDW Standard Deviation 37.9 fL (36.4-46.3); Red Blood Count 5.17 M/uL (4.2-5.4); White Blood Count 5.47 K/uL (4.8-10.8)
[2021-01-13 07:10] LABS: Albumin Level 3.1 gm/dl (3.4-5.0); BUN Creatinine Ratio 12.8 (10-20); Calcium 8.9 mg/dl (8.5-10.1); Creatinine Clr Calc Pharmacy 93.2 ml/min; Est GFR (African American) 132.7 ml/min; Est GFR (Non-African American) 114.5 ml/min
[2021-01-13 07:12] LABS: Albumin Globulin Ratio 0.8 (0.9-2); Bilirubin,Total 0.6 mg/dl (0.2-1); Globulin 3.9 gm/dl (2.5-4.0)
--- NOTE | 2021-01-13 07:18 | XRay Report ---
XR chest 1V portable CLINICAL HISTORY: Abnormal chest x-ray. Follow-up study COMPARISON STUDY: 01/12/2021 FINDINGS: There is no change in the position of the pigtail right-sided pleural catheter. There is a persistent moderate to large right pleural effusion with associated right lung air space opacities an d air bronchograms.[No pneumothorax is visualized. Minimal left basilar airspace opacities are likely atelectatic IMPRESSION: 1. Persistent moderate to large right pleural effusion with right lung consolidation air bronchograms 2. No change in position of the right-sided pigtail pleural catheter 3. Left basilar opacities consistent with atelectatic ACT 112: Negative or not required by law. Electronically signed by: Colton Cook M.D. 01/13/2021 7:17 AM
[2021-01-13] MEDS: ASCORBIC ACID 500 MG TAB PO SCH (07:58)
[2021-01-13] MEDS ORDERED: MULTIVITAMIN TAB PO SCH (09:00)
--- NOTE | 2021-01-13 11:22 | Pulmonology Progress Note ---
Date of Service January 13, 2021 Assessment & Plan (1) Pleural effusion: CT chest 01/12/2021 personally reviewed: Large right-sided pleural effusion with mediastinal shift to the left Compression atelectasis of the right middle, right lower and partial upper lobe No significant mediastinal adenopathy --Large right-sided pleural effusion with mediastinal shift to the left Etiology is likely infectious vs malignancy (unlikely) Given being an endemic area with high TB and recent travel Tuberculosis still in the differential COVID-19 PCR negative Follow-up procalcitonin S/p chest tube placement 01/12/2021, 85% lymphocytes Exudative as per lights criteria Pleural fluid: LDH: 244, protein 5.4, glucose 76, pH 7.39 Serum: LDH: 212, protein 7.9, glucose 98 Continue with airborne precautions till we have results of gold QuantiFERON or 3 negative AFB smear --Right-sided pneumothorax Likely from entrapped lung It should gradually resolve once the lung starts to expand Plan: Chest x-ray from today shows right apical pneumo. Right-sided pleural effusion is still there. Dense consolidation of the right lower lobe. I started the patient on Rocephin and will add atypical coverage was azithromycin as well for 5 days Continue with pain management Aggressive incentive spirometry Chest tube level 330 mL today. Total output 2.5 L so far Would recommend to unclamp the chest tube tube around 12 PM off suction. Not to take out more than 1 liter in the next 24 hours. If the patient complains of any chest tightness or pain on the right side clamp the chest tube again. This was relayed to RN. Please note the above document was generated using voice recognition software. It may contain grammatical, syntax or spelling errors.Any formal questions or concerns about the content, text or information contained within the body of this dictation should be directly addressed to the provider for clarification. (2) Shortness of breath: (3) Cough: (4) Abnormal chest CT: (5) Atelectasis of left lung: (6) Mediastinal shift: (7) Pneumothorax: Admission and Anticipated Discharge Date Admission Date: January 12, 2021 Subjective Patient seen and examined at bedside. No acute distress. No adverse events overnight. Patient is feeling much better compared to yesterday. Denies any chest pain Shortness of breath is improved. Patient was saturating 99% on 4 L of the cannula the time of examination. Denies any nausea or vomiting. No headache, no blurry vision. Fair appetite. Review of Systems Review of Systems: All systems reviewed & are unremarkable except as noted in Subjective Physical Exam Physical Exam: Constitutional: No acute distress HEENT: EOMI, PERRLA Respiratory system: Decreased air entry on the right side, no wheeze, no rhonchi, no crackles CVS: S1-S2 positive, no murmurs or gallops Abdomen: Soft, nontender, nondistended, positive bowel sounds x4 Extremities: +2 pulses bilaterally radialis/ dorsalis pedis, no cyanosis, no edema Neuro: Awake alert oriented x3 Psych: Normal mood and affect G/U: No Jaimes Right-sided chest tube in place. Skin: no rashes, warm and dry Lymphatic: no cervical or axillary lymphadenopathy Results & Data Results & Data ([facility]) Vital Signs (Past 12 Hours) Vital Signs Temp Pulse Pulse Pulse Resp BP BP 01/13/21 08:53 18 01/13/21 08:36 95 H 01/13/21 07:40 80 14 01/13/21 07:39 36.8 C 82 18 102/68 01/13/21 03:00 88 16 01/13/21 02:44 36.6 C 83 18 101/65 01/12/21 23:26 36.7 C 102 H 20 101/71 Pulse Ox 01/13/21 08:53 96 01/13/21 08:36 01/13/21 07:40 99 01/13/21 07:39 99 01/13/21 03:00 100 01/13/21 02:44 97 01/12/21 23:26 98 01/13/21 06:14 01/13/21 06:14 PG Care Time/CCT Total # of Minutes Spent Total Time Spent with Patient: Total time spent is greater than 50% in coordination of care (as documented) at patient's floor/unit and/or counseling patient: [place] [address] Subseq Hosp Care Lvl 3 Patient Type Established Diagnoses Pleural effusion J90 Shortness of breath R06.02 Cough R[address] R93.89 Atelectasis of left lung J98.11 Mediastinal shift R93.89 Pneumothorax J93.9
[2021-01-13] MEDS: AZITHROMYCIN 250 MG TAB PO SCH (12:27)
[2021-01-13] MEDS: cefTRIAXone SODIUM 1,000 MG in DEXTROSE 5% 50 ML IV SCH (19:52)
[2021-01-13] MEDS: CEROVITE ADV FORMULA TAB PO SCH (19:57)
--- NOTE | 2021-01-14 06:44 | Hospitalist Progress Note ---
Date of Service January 13, 2021 Assessment & Plan (1) Acute respiratory failure with hypoxia: 2nd to large right-sided pleural effusion, right lung collapse / trapped lung 2nd to the large pleural effusion, and post-thoracentesis pulmonary edema. Latter resolved with diuretics. Chest tube remains for right-sided exudative pleural effusion. Treating for community-acquired pneumonia of right base as precautionary measure. Awaiting w/u (AFBs, quantiferon gold testing, etc) for TB. Cont chest tube - management per pulmonary. Cont NC O2, pulmonary toilet. (2) Pleural effusion: RIGHT. Large. s/p right-sided chest tube placement on 01/12/[address] Pena. Exudative by lite's criteria. 2nd to TB? malignancy (doubt, and no thoracic lesions to suggest such)? empyema (but clinically and by cell counts does not look like such)? all lymphocytes - suspicious for TB. cont w/u for TB. appreciate Dr Pena's assistance; defer management of chest tube to him. (3) Pneumothorax: likely 2nd to trapped lung per Dr Pena. Cont chest tube. (4) Abnormal chest CT: RML/RLL collapse/consolidation. Covering for CAP with rocephin/zithromax as precautionary measure. However, the RML/RLL infiltrates is likely severe compressive atelectasis. 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 daily BMP for stability. (6) Lung consolidation: as above (7) DVT prophylaxis: add lovenox tomorrow - not very ambulatory due to chest tube and has severe inflammatory state from thoracic issues add MVI and boost due to anorexia Carissa, her mentor at [employer], was updated today with pt's brandon mitchell Carissa will update pt's mom/dad in [place] cont airborne precautions Admission and Anticipated Discharge Date Admission Date: January 12, 2021 Subjective tele overnight wnl minimal cough CARSON with very little exertion appetite & fatigue continue she had lost some weight in the last month - uncertain about amount she cannot recall anyone in her family in [place] with TB fully vaccinated against COVID has had BCG vaccine as well main complaint today is that of pain over right chest near the chest tube site Review of Systems Constitutional: + fatigue and + anorexia; no sweats Respiratory: + dyspnea on exertion; no hemoptysis Cardiovascular: as per Subjective / HPI and + chest pain Gastrointestinal: no abdominal pain, no nausea and no vomiting Physical Exam Constitutional: + ill appearing; no acute distress and no altered mental status ENMT: external ear and nose normal, oropharynx normal Respiratory: Auscultation: + diminished lung sounds (right base) and + rales (right base/right lung); no rhonchi and no wheezes chest tube in place on right Cardiovascular: Rate/Rhythm: regular rhythm and + tachycardic Heart Sounds: normal S1 and normal S2; no murmur Vessels: posterior tibial pulses present and dorsalis pedis pulses present; no JVD Extremities: no edema Gastrointestinal (Abdomen): normal bowel sounds, soft, nontender, no hepatosplenomegaly Skin: no rashes, warm and dry Psychiatric: A+Ox3, euthymic affect Lymphatic: no cervical lymphadenopathy Results & Data Results & Data ([facility]) Vital Signs (Past 12 Hours) Vital Signs Temp Pulse Pulse Pulse Resp BP Pulse Ox 01/14/21 04:00 36.8 C 94 H 18 99/65 L 96 01/13/21 23:45 36.8 C 90 19 94/62 L 97 01/13/21 22:20 83 01/13/21 19:57 37.1 C 94 H 94 H 18 102/71 95 Laboratory Results Laboratory Results - last 24 hr 01/13/21 01/13/21 01/13/21 06:14 11:29 11:29 Sodium 134 L Potassium 5.0 Chloride 104 Carbon Dioxide 27 Anion Gap 3.0 BUN 9 Creatinine 0.73 Est Cr Clr Drug Dosing 93.2 Est GFR ( Amer) 132.7 Est GFR (Non-Af Amer) 114.5 BUN/Creatinine Ratio 12.8 Glucose 110 H Calcium 8.9 Total Bilirubin 0.6 AST 15 ALT 16 Alkaline Phosphatase 61 NT-Pro-B Natriuret Pep 42 Total Protein 7.0 Albumin 3.1 L Globulin 3.9 Albumin/Globulin Ratio 0.8 L Urine Legionella Ag Mycoplasma pneumon IgM Pending 01/13/21 Unknown Sodium Potassium Chloride Carbon Dioxide Anion Gap BUN Creatinine Est Cr Clr Drug Dosing Est GFR ( Amer) Est GFR (Non-Af Amer) BUN/Creatinine Ratio Glucose Calcium Total Bilirubin AST ALT Alkaline Phosphatase NT-Pro-B Natriuret Pep Total Protein Albumin Globulin Albumin/Globulin Ratio Urine Legionella Ag Pending Mycoplasma pneumon IgM PG Care Time/CCT Total # of Minutes Spent Total Time Spent with Patient: Total time spent is greater than 50% in coordination of care (as documented) at patient's floor/unit and/or counseling patient: Coding Level of Care Code 30519 Subseq Hosp Care Lvl 2 Diagnoses Acute respiratory failure with hypoxia J96.01 Pleural effusion J90 Pneumothorax J95.811 Pneumothorax type: postprocedural Abnormal chest CT R93.89 Hyponatremia E87.1 Lung consolidation J18.1 DVT prophylaxis Z29.9 (1) Pneumothorax Pneumothorax type: postprocedural Qualified Code(s): J95.811 - Postprocedural pneumothorax
[2021-01-14 07:37] LABS: BUN Creatinine Ratio 17.8 (10-20); Blood Urea Nitrogen 9 mg/dl (7-18); Calcium 8.3 mg/dl (8.5-10.1); Carbon Dioxide 24 mmol/L (21-32); Chloride 105 mmol/L (98-107); Creatinine Clr Calc Pharmacy 130.8 ml/min; Est GFR (African American) > 150.0 ml/min; Est GFR (Non-African American) 132.8 ml/min; Glucose 80 mg/dl (70-99); Potassium 4.2 mmol/L (3.5-5.1); Sodium 134 mmol/L (136-145)
--- NOTE | 2021-01-14 07:40 | XRay Report ---
SINGLE VIEW CHEST CLINICAL HISTORY: Follow-up pleural effusion. FINDINGS: An AP, portable, upright chest radiograph is compared to chest x-ray dated 01/13/2021 and co rrelated with chest CT dictated 01/12/2021. The cardiomediastinal silhouette is unremarkable. A pigtai l chest tube is again seen at the right lung base. Right hydropneumothorax has not significant change d from yesterday. Consolidation is again seen throughout the right mid to lower lung. There is a smal l left pleural effusion with left basilar opacities. The bony thorax is grossly intact. IMPRESSION: 1. A right-sided chest tube is unchanged in position. 2. Right hydropneumothorax with consolidation of the right lung has not significantly changed from ye . 3. Small left pleural effusion with left basilar opacities. ACT 112: Negative or not required by law. Electronically signed by: Manuel Maravilla M.D. 01/14/2021 7:39 AM
--- NOTE | 2021-01-14 07:55 | Pulmonology Progress Note ---
Date of Service January 14, 2021 Assessment & Plan (1) Pleural effusion: CT chest 01/12/2021 personally reviewed: Large right-sided pleural effusion with mediastinal shift to the left Compression atelectasis of the right middle, right lower and partial upper lobe No significant mediastinal adenopathy --Large right-sided pleural effusion with mediastinal shift to the left Etiology is likely infectious vs malignancy (unlikely) Given being an endemic area with high TB and recent travel Tuberculosis still in the differential COVID-19 PCR negative Follow-up procalcitonin S/p chest tube placement 01/12/2021, 85% lymphocytes Exudative as per lights criteria Pleural fluid: LDH: 244, protein 5.4, glucose 76, pH 7.39 Serum: LDH: 212, protein 7.9, glucose 98 Pleural fluid cultures negative to date Continue with airborne precautions till we have results of gold QuantiFERON or 3 negative AFB smear --Right-sided pneumothorax Likely from entrapped lung It should gradually resolve once the lung starts to expand Plan: Chest tube level 500 mL today. Total output 2.8 L so far Patient's connecting tube was clogged during the time of examination. It was flushed with saline and started to drain again. 250 mL drained while I was in the room. Chest x-ray still shows right-sided pleural effusion with consolidative changes in the right lung. We will repeat CT chest in 24-48 hours to see how the right side of the lung looks like. On the bedside ultrasound there were no loculations appreciated at the time of the chest tube. Hopefully there will be no loculations, if she does then she might need mist 2 protocol. Continue with antibiotics for total of 5 days. Continue with pain management Aggressive incentive spirometry This was relayed to RN. Please note the above document was generated using voice recognition software. It may contain grammatical, syntax or spelling errors.Any formal questions or concerns about the content, text or information contained within the body of this dictation should be directly addressed to the provider for clarification. (2) Shortness of breath: (3) Cough: (4) Abnormal chest CT: (5) Atelectasis of left lung: (6) Mediastinal shift: (7) Pneumothorax: Admission and Anticipated Discharge Date Admission Date: January 12, 2021 Subjective Patient seen and examined at bedside. No acute distress, no adverse events overnight. Patient says she is feeling better. Denies any chest pain. There is some discomfort of the chest tube site. Has been eating well. She has been using incentive spirometry is able to get on 500 and off. Encouraged to get at least 1500 mL. Denies any nausea or vomiting. Review of Systems Review of Systems: All systems reviewed & are unremarkable except as noted in Subjective Physical Exam Physical Exam: Constitutional: No acute distress HEENT: EOMI, PERRLA Respiratory system: Decreased air entry on the right side, no wheeze, no rhonchi, no crackles CVS: S1-S2 positive, no murmurs or gallops Abdomen: Soft, nontender, nondistended, positive bowel sounds x4 Extremities: +2 pulses bilaterally radialis/ dorsalis pedis, no cyanosis, no edema Neuro: Awake alert oriented x3 Psych: Normal mood and affect G/U: No Jaimes Right-sided chest tube in place. Skin: no rashes, warm and dry Lymphatic: no cervical or axillary lymphadenopathy Results & Data Results & Data ([facility]) Vital Signs (Past 12 Hours) Vital Signs Temp Pulse Pulse Pulse Resp BP Pulse Ox 01/14/21 07:43 36.8 C 96 H 18 103/70 95 01/14/21 04:00 36.8 C 94 H 18 99/65 L 96 01/13/21 23:45 36.8 C 90 19 94/62 L 97 01/13/21 22:20 83 01/13/21 19:57 37.1 C 94 H 94 H 18 102/71 95 01/13/21 06:14 01/14/21 07:01 PG Care Time/CCT Total # of Minutes Spent Total Time Spent with Patient: Total time spent is greater than 50% in coordination of care (as documented) at patient's floor/unit and/or counseling patient: Coding Level of Care Code 15019 Subseq Hosp Care Lvl 3 Diagnoses Pleural effusion J90 Shortness of breath R06.02 Cough R[address] R93.89 Atelectasis of left lung J98.11 Mediastinal shift R93.89 Pneumothorax J93.9
[2021-01-14] MEDS: CEROVITE ADV FORMULA TAB PO SCH (08:57)
[2021-01-14] MEDS: AZITHROMYCIN 250 MG TAB PO SCH (08:57)
[2021-01-14] MEDS: ASCORBIC ACID 500 MG TAB PO SCH (08:57)
[2021-01-14] MEDS: MoRPHine SULFATE 2 MG/ML CARP IV PRN ×4 (09:08→22:00)
[2021-01-14] MEDS: ENOXAPARIN INJ 40 MG/0.4 ML SYR SQ SCH (09:50)
[2021-01-14 15:02] LABS: Quantiferon Mitogen-NIL >10.00 IU/mL; Quantiferon NIL 0.46 IU/mL; Quantiferon TB Gold Plus POSITIVE (NEGATIVE); Quantiferon TB1-NIL 0.59 IU/mL
--- NOTE | 2021-01-14 17:47 | Hospitalist Progress Note ---
Date of Service January 14, 2021 Assessment & Plan (1) Acute respiratory failure with hypoxia: 2nd to large right-sided pleural effusion, right lung collapse / trapped lung 2nd to the large pleural effusion, and post-thoracentesis pulmonary edema. Latter resolved with diuretics. Chest tube remains for right-sided exudative pleural effusion. Dr Pena managing. Treating for community-acquired pneumonia of right lung base as precautionary measure. Day #3 rocephin/zithromax. Quantiferon gold testing has returned positive - see below. Cont chest tube - management per pulmonary. Cont NC O2, pulmonary toilet. (2) Positive QuantiFERON-TB Gold test: This returned positive today. This is highly suspicious for TB, especially in light of pleural effusion studies/cell counts/etc as well as clinical picture, [place], travel to [place], etc. It is not diagnostic of TB -- but [id number] the TB diagnosis is top of the differential for her illness. I spoke at length with Dr Pena today. Plan - * notify local health department of suspected TB; cont airborne isolation * call put out to Dr Kathryn Calderon from our infection control office regarding this case; she will notify local health department * order 7% hypertonic saline and induce sputum; attempt such tonight and again in am; only has had 1 AFB smear/culture from sputum; pleural fluid AFB smear/culture also performed -- unfortunately both smears neg for AFB * consider urine for AFB * HIV test ordered; verbal consent for such obtained from patient * if sputum AFBs are nondiagnostic on smear, the cultures may show AFB but may take 4+ weeks to grow * may need bronch if she cannot produce sputum even with induction by NaCL 7% * may need pleural biopsy for diagnosis; VATS is a possibility given ongoing hydropneumothorax; would need to Tx to tertiary care for VATs, pleural bx, etc. * [facility] ID consult in am (3) Pleural effusion: RIGHT. Large. s/p right-sided chest tube placement on 01/12/[address] Pena. Exudative by lite's criteria. Bacterial fluid culture negative to date. AFB smear from fluid negative; culture pending. Tends to give low yield for AFB, however (UpToDate). 2nd to TB? malignancy? (doubt, and no thoracic lesions to suggest such) parapneumonic? all lymphocytes on cell counts - this is suspicious for TB. cont w/u for TB as above. appreciate Dr Pena's assistance; defer management of chest tube to him. see above in "quantiferon" for other details. for pain control - add norco prn. morphine prn. cxr am. awaiting adenosine deaminase from pleural fluid. await cytologies on Friday. (4) Pneumothorax: small, likely 2nd to trapped lung per Dr Pena. cont chest tube. hopefully trapped lung will open up. cont incentive spirometry. (5) Abnormal chest CT: RML/RLL collapse/consolidation. Covering for CAP with rocephin/zithromax as precautionary measure. Day #3 of each. However, the RML/RLL infiltrates are likely severe compressive atelectasis. Bacterial sputum cx neg to date. (6) Hyponatremia: element of low-grade SIADH from intra-thoracic process? check serum osm, urine osm, urine Na if serum Na worsens. daily BMP for stability. (7) Lung consolidation: as above (8) Anorexia: 2nd to intra-thoracic pathology (TB? other?). cont MVI. cont boost. add low-dose marinol 2.5mg daily with a meal. side effects discussed w/ patient. (9) DVT prophylaxis: lovenox (10) Complex care coordination: Updated azalea Cyr's mentor/brine supervisor at [employer] department (she is keeping her family informed in [place] via email). her phone # is [phone]. Parents names - Pedro Luis Glover - father Jacki Glover - mother both are presently in [place] international phone number for parents -- [phone] email -- [email or web address] DID speak with pt's father, Pedro Luis Glover on 01/14/21 by phone. Gave 20-minute update regarding all imaging results, test results including +quantiferon gold, and concern for TB. Discussed other possible diagnoses. Reviewed plan of care and need for definitive diagnosis via +AFB smear, +AFB culture, biopsy, etc. He voiced understanding. Questions answered. is recovering from recent COVID-19 infection. total care coordination time - speaking w/ pt's father, local contact Klarissa, pulmonary Dr Pena, multiple phone calls to pt's room, bedside visit, coordination w/ nursing, speaking with infection control, etc -- 120 minutes. Admission and Anticipated Discharge Date Admission Date: January 12, 2021 Subjective tele again stable overnight patient on 1 L NC O2 during the day today she c/o mild pleuritic CP on right near chest tube insertion site she has minimal to no cough continues with fatigue and poor appetite getting OOB very little trying to do incentive but getting poor volumes per staff we had lengthy discussion about +Quantiferon gold test and its ramifications highly suggestive but not fully diagnostic of TB [id number] TB is at top of differential of her illness no BM in 2-3 days Review of Systems Constitutional: + fatigue, + weakness and + anorexia; no fever, no chills and no body aches Respiratory: + cough, + dyspnea on exertion and + pain on inspiration; no hemoptysis and no wheezing Cardiovascular: no dyspnea at rest, no orthopnea and no edema Gastrointestinal: no abdominal pain, no nausea and no vomiting Musculoskeletal: no back pain Physical Exam Constitutional: + ill appearing; no acute distress and no altered mental status ENMT: external ear and nose normal, oropharynx normal Respiratory: no respiratory distress Auscultation: + diminished lung sounds (right base, with tiny amount left base as well ) and + rales (right base); no rhonchi and no wheezes Cardiovascular: Rate/Rhythm: regular rate and regular rhythm Heart Sounds: normal S1 and normal S2; no murmur Vessels: posterior tibial pulses present and dorsalis pedis pulses present; no JVD Extremities: no edema Gastrointestinal (Abdomen): normal bowel sounds, soft, nontender, no hepatosplenomegaly Skin: no rashes, warm and dry chest tube in place right chest wall Psychiatric: A+Ox3, euthymic affect Results & Data Results & Data ([facility]) Vital Signs (Past 12 Hours) Vital Signs Temp Pulse Pulse Resp BP Pulse Ox 01/14/21 15:25 37.0 C 84 16 90/59 L 98 01/14/21 15:05 83 01/14/21 11:30 36.9 C 73 18 92/63 L 97 01/14/21 07:43 36.8 C 96 H 18 103/70 95 Laboratory Results Laboratory Results - last 24 hr 01/12/21 01/13/21 01/14/21 17:37 Unknown 07:01 Sodium 134 L Potassium 4.2 D Chloride 105 Carbon Dioxide 24 Anion Gap 5.0 BUN 9 Creatinine 0.52 L Est Cr Clr Drug Dosing 130.8 Est GFR ( Amer) > 150.0 Est GFR (Non-Af Amer) 132.8 BUN/Creatinine Ratio 17.8 Glucose 80 Calcium 8.3 L Urine Legionella Ag Pending TB Test (QFT) Gold Plus POSITIVE A TB Test (QFT) Nil 0.46 TB Test Mitogen - Nil >10.00 TB Test Ag - Nil 1 0.59 TB Test Ag - Nil 2 0.50 Diagnostic Findings 01/12/21 18:50 Gram Stain - Final Sputum, Expectorated Sputum Culture - Final Moderate normal sheila. 01/12/21 18:50 Acid Fast Bacilli Smear - Final Sputum, Expectorated Acid Fast Bacilli Culture - Pending 01/12/21 16:24 Acid Fast Bacilli Smear - Final Pleural Fluid Acid Fast Bacilli Culture - Pending 01/12/21 16:24 Gram Stain - Final Pleural Fluid PG Care Time/CCT Total # of Minutes Spent Total Time Spent with Patient: Total time spent is greater than 50% in coor dination of care (as documented) at patient's floor/unit and/or counseling patient: Prolonged Care Time Prolonged Care Time: Yes Total Prolonged Care Time: 120 Coding Level of Care Code 35335 Subseq Hosp Care Lvl 3 (25 - SIGNIFICANT, SEPARATELY IDENTIFIABLE ) Diagnoses Acute respiratory failure with hypoxia J96.01 Positive QuantiFERON-TB Gold test R76.12 Pleural effusion J90 Pneumothorax J95.811 Pneumothorax type: postprocedural Abnormal chest CT R93.89 Hyponatremia E87.1 Lung consolidation J18.1 Anorexia R63.0 DVT prophylaxis Z29.9 Complex care coordination Z71.89 Additional Codes Prolonged Care Time - Prolonged Care Time: Yes ([id number]) Time Spent (min) 120 (1) Pneumothorax Pneumothorax type: postprocedural Qualified Code(s): J95.811 - Postprocedural pneumothorax
[2021-01-14 18:56] LABS: Appearance Urine Clear (Clear); Bacteria Urine Automated Negative (Negative); Bilirubin Urine Negative (Negative); Blood Urine 2+ (Negative); Cast Urine Automated 0 /lpf (0-5); Color Urine Yellow; Glucose Urine UA Negative (Negative); Ketones Urine Negative (Negative); Leukocyte Esterase Urine Negative (Negative); Nitrite Urine Negative (Negative); Protein Urine Negative (Negative); RBC Urine Automated 0-4 /hpf (0-4); Specific Gravity Urine 1.005 (1.000-1.030); Urobilinogen Urine Negative (Negative); pH Urine 6.5 (4.5-7.5)
[2021-01-14] MEDS: SODIUM CHLOR 7% 4 ML NEB NEB SCH (19:10)
[2021-01-14] MEDS: cefTRIAXone SODIUM 1,000 MG in DEXTROSE 5% 50 ML IV SCH (19:44)
[2021-01-15] MEDS: MoRPHine SULFATE 2 MG/ML CARP IV PRN ×2 (04:34→22:10)
[2021-01-15 06:55] LABS: Basophils # (auto) 0.01 K/uL (0-0.2); Basophils % (auto) 0.2 %; Eosinophils # (auto) 0.16 K/uL (0-0.5); Eosinophils % (auto) 3.5 %; Hematocrit (blood only) 39.7 % (37-47); Hemoglobin 13.2 g/dL (12.0-16.0); Lymphocytes % (auto) 21.8 %; Mean Corpuscular Hemoglobin 27.2 pg (25-34); Mean Corpuscular Hgb Conc 33.2 g/dL (32-36); Mean Corpuscular Volume 81.9 fL (80-100); Mean Platelet Volume 8.9 fL (7.4-10.4); Monocytes # (auto) 0.53 K/uL (0.11-0.59); Monocytes % (auto) 11.6 %; Neutrophils # (auto) 2.88 K/uL (1.4-6.5); Neutrophils % (auto) 62.9 %; Platelet Count 239 K/uL (130-400); RDW Coefficient of Variation 12.5 % (11.5-14.5); RDW Standard Deviation 37.5 fL (36.4-46.3); Red Blood Count 4.85 M/uL (4.2-5.4); White Blood Count 4.58 K/uL (4.8-10.8)
[2021-01-15] MEDS: SODIUM CHLOR 7% 4 ML NEB NEB SCH (07:12)
[2021-01-15 07:36] LABS: BUN Creatinine Ratio 12.8 (10-20); Calcium 8.5 mg/dl (8.5-10.1); Creatinine Clr Calc Pharmacy 117.3 ml/min; Est GFR (African American) 148.5 ml/min; Est GFR (Non-African American) 128.1 ml/min
[2021-01-15] MEDS: SENNA 8.6 MG TAB PO SCH (08:31)
[2021-01-15] MEDS: POLYETHYLENE (MIRALAX) 17 GM PACK PO SCH (08:31)
[2021-01-15] MEDS: ASCORBIC ACID 500 MG TAB PO SCH (08:32)
[2021-01-15] MEDS: AZITHROMYCIN 250 MG TAB PO SCH (08:32)
[2021-01-15] MEDS: CEROVITE ADV FORMULA TAB PO SCH (08:32)
[2021-01-15] MEDS: ENOXAPARIN INJ 40 MG/0.4 ML SYR SQ SCH (08:32)
--- NOTE | 2021-01-15 11:10 | Pulmonology Progress Note ---
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 Pleural fluid AFB stains were negative with cultures pending and sputum is negative for AFB with cultures pending. Her QuantiFERON was positive. Recommendations: 1. Lymphocytic exudative pleural effusion: Differential diagnosis would include tuberculous pleuritis, yellow nail syndrome, and chylothorax. Given her positive QuantiFERON and recent travel to [place], tuberculous pleuritis remains high on the differential. Pleural fluid adenosine deaminase is pending and should be available by tomorrow. If her pleural ADA level is greater than 40, diagnosis is likely tuberculous pleuritis and recommendation would be to initiate RIPE therapy. Long-term drainage is not typically required as the effusion typically resolves with appropriate antituberculous therapy over a period of weeks. We will await the CT scan prior to discontinuation of the pl eural drain. No indication for steroids. My suspicion for secondary infection is low so I think stopping antibiotics is reasonable. If the pleural ADA level were to come back less than 40, would recommend video-assisted thoracoscopic evaluation with pleural biopsy which would necessitate transfer to a tertiary care center. Infectious disease consultation is currently pending and I will defer initiation of RIPE therapy to ID. She will need coordination of care with the [facility]. Additional recommendations will depend on results of pleural fluid studies and follow-up imaging. We will continue to follow with you. Admission and Anticipated Discharge Date Admission Date: January 12, 2021 Subjective Patient seen and examined. EMR reviewed. The patient is sitting up in a chair doing well. She is off oxygen. She feels her breathing is better. She is tolerating a diet. Her appetite is improved. No fevers chills night sweats overnight. No cough or sputum production. Review of Systems Review of Systems: All systems reviewed & are unremarkable except as noted in HPI & below Physical Exam Constitutional: WD/WN, vitals as above Neck: trachea midline, no thyromegaly Respiratory: normal respiratory effort; no respiratory distress and no labored breathing Chest tube site dressed and clean dry and intact. Serous drainage. Cardiovascular: RRR, no murmur, no edema Gastrointestinal (Abdomen): normal bowel sounds, soft, nontender, no hepatosplenomegaly Musculoskeletal: Extremities: extremities normal to inspection Skin: no rashes, warm and dry Neurologic: Nonfocal exam Lymphatic: no cervical lymphadenopathy Results & Data Results & Data ([facility]) Vital Signs (Past 12 Hours) Vital Signs Temp Pulse Pulse Resp BP BP Pulse Ox 01/15/21 10:38 82 01/15/21 10:25 36.7 C 100 H 19 101/69 94 01/15/21 07:38 36.4 C L 98 H 18 94/63 L 95 01/15/21 07:13 87 16 94 01/15/21 03:19 36.9 C 95 H 19 89/61 L 94 I/O: Chest tube output recorded as 825 mL over the last 24 hours. Laboratory Results 01/15/21 06:33 01/15/21 06:33 Pleural fluid ADA: Discussed with lab, may be available as early as tomorrow. Diagnostic Findings Chest x-ray from today was reviewed. There appears to be decreased pleural effusion however there does appear to be a loculated pneumothorax present. The chest tube is in good position. PG Care Time/CCT Total # of Minutes Spent Total Time Spent with Patient: Total time spent is greater than 50% in coordination of care (as documented) at patient's floor/unit and/or counseling patient: Coding Level of Care Code 28459 Subseq Hosp Care Lvl 3 Diagnoses Positive QuantiFERON-TB Gold test R76.12 Pleural effusion J90 Abnormal chest CT R93.89 Shortness of breath R06.02
--- NOTE | 2021-01-15 11:12 | XRay Report ---
XR chest 1V portable CLINICAL HISTORY: f/u COMPARISON STUDY: Chest radiograph January 14, 2021. Chest CT January 12, 2021. FINDINGS: Right basilar pleural pigtail catheter remains in place. Right lung aeration has significan tly improved since prior exam. The previously described right hydropneumothorax has decreased. There is trace residual right pleural gas. There is no left pneumothorax. There is no evidence for pulmonar y edema. Right basilar and midlung opacity persists but has improved. IMPRESSION: Right pleural pigtail catheter in place. Significant improvement in right lung aeration with decrease in right mid and lower lung airspace opacity with a small right hydropneumothorax. ACT 112: Negative or not required by law. Electronically signed by: Misha Stewart M.D. 01/15/2021 11:11 AM
--- NOTE | 2021-01-15 13:38 | Electrocardiogram Report ---
Test Reason : Blood Pressure : / mmHG Vent. Rate : 083 BPM Atrial Rate : 083 BPM P-R Int : 104 ms QRS Dur : 082 ms QT Int : 336 ms P-R-T Axes : -05 029 -12 degrees QTc Int : 394 ms Sinus rhythm with short DE Nonspecific T wave abnormality Abnormal ECG No previous ECGs available Confirmed by Magdi Carter ([id number]) on 01/15/2021 1:38:35 PM Referred By: Tiny Lambert Confirmed By:Magdi Carter
[2021-01-15] MEDS: HYDROCODONE/ACETAMOPHEN 5/325MG TAB PO PRN (21:08)
--- NOTE | 2021-01-15 22:58 | Hospitalist Progress Note ---
Date of Service January 15, 2021 Assessment & Plan (1) Acute respiratory failure with hypoxia: 2nd to large right-sided pleural effusion, right lung collapse / trapped lung 2nd to the large pleural effusion, and post-thoracentesis pulmonary edema. resolved - off O2. respiratory status very stable. Chest tube remains for right-sided exudative pleural effusion - pulmonary managing. CXR today improved. ?community-acquired pneumonia of right lung base -- procal negative; had received rocephin/zithromax but these will be discontinued today. Quantiferon gold testing has returned positive - see below. Continue pulmonary toilet. (2) Positive QuantiFERON-TB Gold test: Highly suspicious for TB, especially in light of pleural effusion studies/cell counts/etc as well as clinical picture, [place], travel to [place], etc. It is not diagnostic of TB -- but [id number] the TB diagnosis is top of the differential for her illness. Cytologies from pleural fluid still pending. All AFB smears/cultures to date are negative. * infection control at [facility] and local health department notified of suspected TB; cont airborne isolation * urine for AFB ordered * HIV negative; patient made aware of this result * if sputum AFBs are nondiagnostic on smear, the cultures may show AFB but may take 4+ weeks to grow * may need bronch since she has been unable to produce sputum even with induc tion * may need pleural biopsy for diagnosis; VATS is a possibility given ongoing hydropneumothorax; would need to Tx to tertiary care for VATs, pleural bx, etc. * [facility] ID consult requested In terms of Rx of suspected TB - defer initiation of 4-drug regimen to pulmonary and/or ID. Ideally we have confirmation with +AFB but clinical picture very c/w TB. (3) Pleural effusion: RIGHT. Large. s/p right-sided chest tube placement on 01/12/[address] Pena. Exudative by lite's criteria. Bacterial fluid culture negative to date. AFB smear from fluid negative; culture pending. Tends to give low yield for AFB, however (UpToDate). 2nd to TB? malignancy? (doubt, and no thoracic lesions to suggest such) parapneumonic? (also doubt - IV antibiotics d/c) all lymphocytes on cell counts - this is suspicious for TB. cont w/u for TB as above. appreciate Dr Pena and Dr Haro's assistance; defer management of chest tube to them. see above in "quantiferon" for other details. for pain control - norco prn. morphine prn. awaiting adenosine deaminase from pleural fluid. await cytologies. (4) Pneumothorax: small. cont chest tube. hopefully trapped lung will continue to open up. cont incentive spirometry. (5) Abnormal chest CT: RML/RLL collapse/consolidation. likely 2nd severe compressive atelectasis from large pleural effusion. abx d/c today. Bacterial sputum cx neg to date. (6) Hyponatremia: resolved (7) Lung consolidation: as above (8) Anorexia: 2nd to intra-thoracic pathology (TB? other?). cont MVI. cont boost. cont marinol 2.5mg daily with a meal. no side effects from marinol at this time. 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 (she is keeping the pt's family informed via email with pt's permission). her phone # is [phone]. Parents names - Pedro Luis Glover - father Jacki Glover - mother both are presently in [place] international phone number for parents -- [phone] email -- [email or web address] pt's father, Pedro Luis Glover, extensively updated by phone on 01/14/21. will update him on 01/16/21 via phone Admission and Anticipated Discharge Date Admission Date: January 12, 2021 Subjective tele stable overnight o2 weaned off mild right sided pleuritic chest pain with movement or deep breathing she is doing better w/ her incentive appetite modestly improved w/ marinol despite 2 attempts at induction of sputum w/ nebulized hypertonic saline unable to produce any sputum has essentially no cough energy still poor but getting up in room to walk Review of Systems Constitutional: + fatigue, + weakness and + anorexia; no fever and no chills Ear, Nose, Mouth, Throat: no dysphagia Respiratory: + dyspnea on exertion; no cough, no hemoptysis and no wheezing Cardiovascular: as per Subjective / HPI and + chest pain; no edema Gastrointestinal: + diarrhea/loose stools (started this am ); no abdominal pain Physical Exam Constitutional: + ill appearing; no acute distress and no altered mental status ENMT: external ear and nose normal, oropharynx normal Respiratory: no respiratory distress Auscultation: + diminished lung sounds (b/l bases, worse on right - modestly improved ) and + rales (right base - mild , improved from prior exam); no rhonchi and no wheezes Cardiovascular: Rate/Rhythm: regular rate and regular rhythm Heart Sounds: normal S1 and normal S2; no murmur Vessels: posterior tibial pulses present and dorsalis pedis pulses present; no JVD Extremities: no edema Gastrointestinal (Abdomen): normal bowel sounds, soft, nontender, no hepatosplenomegaly Skin: no rashes, warm and dry Psychiatric: A+Ox3, euthymic affect Results & Data Results & Data ([facility]) Vital Signs (Past 12 Hours) Vital Signs Temp Pulse Pulse Resp BP Pulse Ox 01/15/21 19:50 36.8 C 91 H 18 102/68 94 01/15/21 16:53 36.9 C 88 18 97/65 L 93 01/15/21 16:11 100 H Laboratory Results Laboratory Results - last 24 hr 01/15/21 01/15/21 01/15/21 06:33 06:33 06:33 WBC 4.58 L RBC 4.85 Hgb 13.2 Hct 39.7 MCV 81.9 MCH 27.2 MCHC 33.2 RDW Std Deviation 37.5 RDW Coeff of Sherice 12.5 Plt Count 239 MPV 8.9 Immature Gran % (Auto) 0.0 Neut % (Auto) 62.9 Lymph % (Auto) 21.8 [place] % (Auto) 11.6 Eos % (Auto) 3.5 Baso % (Auto) 0.2 Neut # (Auto) 2.88 Lymph # (Auto) 1.00 L [place] # (Auto) 0.53 Eos # (Auto) 0.16 Baso # (Auto) 0.01 Immature Gran # (Auto) 0.00 Sodium 135 L Potassium 5.0 D Chloride 104 Carbon Dioxide 30 Anion Gap 1.0 L BUN 7 Creatinine 0.58 L Est Cr Clr Drug Dosing 117.3 Est GFR ( Amer) 148.5 Est GFR (Non-Af Amer) 128.1 BUN/Creatinine Ratio 12.8 Glucose 81 Calcium 8.5 Procalcitonin < 0.05 HIV 1&2 Ab/P24 Ag 4thGn 01/15/21 06:33 WBC RBC Hgb Hct MCV MCH MCHC RDW Std Deviation RDW Coeff of Sherice Plt Count MPV Immature Gran % (Auto) Neut % (Auto) Lymph % (Auto) [place] % (Auto) Eos % (Auto) Baso % (Auto) Neut # (Auto) Lymph # (Auto) [place] # (Auto) Eos # (Auto) Baso # (Auto) Immature Gran # (Auto) Sodium Potassium Chloride Carbon Dioxide Anion Gap BUN Creatinine Est Cr Clr Drug Dosing Est GFR ( Amer) Est GFR (Non-Af Amer) BUN/Creatinine Ratio Glucose Calcium Procalcitonin HIV 1&2 Ab/P24 Ag 4thGn Neg all AFBs and cultures to date negative cytologies pending PG Care Time/CCT Total # of Minutes Spent Total Time Spent with Patient: Total time spent is greater than 50% in coordination of care (as documented) at patient's floor/unit and/or counseling patient: Coding Level of Care Code 77192 Subseq Hosp Care Lvl 2 Diagnoses Acute respiratory failure with hypoxia J96.01 Positive QuantiFERON-TB Gold test R76.12 Pleural effusion J90 Pneumothorax J95.811 Pneumothorax type: postprocedural Abnormal chest CT R93.89 Hyponatremia E87.1 Lung consolidation J18.1 Anorexia R63.0 DVT prophylaxis Z29.9 Complex care coordination Z71.89 (1) Pneumothorax Pneumothorax type: postprocedural Qualified Code(s): J95.811 - Postprocedural pneumothorax
[2021-01-16] MEDS: MoRPHine SULFATE 2 MG/ML CARP IV PRN ×2 (03:12→19:55)
[2021-01-16] MEDS: HYDROCODONE/ACETAMOPHEN 5/325MG TAB PO PRN ×2 (06:18→12:25)
[2021-01-16] MEDS: ENOXAPARIN INJ 40 MG/0.4 ML SYR SQ SCH (08:03)
[2021-01-16] MEDS: SENNA 8.6 MG TAB PO SCH (08:03)
[2021-01-16] MEDS: POLYETHYLENE (MIRALAX) 17 GM PACK PO SCH (08:03)
[2021-01-16] MEDS: CEROVITE ADV FORMULA TAB PO SCH (08:03)
--- NOTE | 2021-01-16 13:36 | Pulmonology Progress Note ---
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 Pleural fluid AFB stains were negative with cultures pending and sputum is negative for AFB with cultures pending. Her QuantiFERON was positive. Recommendations: 1. Lymphocytic exudative pleural effusion: Differential diagnosis would include tuberculous pleuritis, yellow nail syndrome, and chylothorax. Given her positive QuantiFERON and recent travel to [place], tuberculous pleuritis remains high on the differential. Pleural fluid adenosine deaminase is pending and should be available sometime today. If her pleural ADA level is greater than 40, diagnosis is likely tuberculous pleuritis and recommendation would be to initiate RIPE therapy. Long-term drainage is not typically required as the effusion typically resolves with appropriate antituberculous therapy over a period of weeks. Continue drainage until the tube output decreases down below 150 mL per 24 hours. If the pleural ADA level were to come back less than 40, would recommend video-assisted thoracoscopic evaluation with pleural biopsy which would necessitate transfer to a tertiary care center. Infectious disease consultation is currently pending and I will defer initiation of RIPE therapy to ID. She will need coordination of care with the [facility]. Plan discussed with patient at bedside. Questions were answered to the best of my ability. Case was discussed with infection control in the hospital. We will continue to follow with you. Admission and Anticipated Discharge Date Admission Date: January 12, 2021 Subjective Seen and examined. EMR reviewed The patient reports that she is doing well clinically. She is more ambulatory. No significant pain with ambulation but she does have some slight discomfort at the chest tube insertion site. No fevers chills night sweats. She is tolerating a diet. Physical Exam Constitutional: WD/WN, vitals as above Neck: trachea midline, no thyromegaly Respiratory: normal respiratory effort; no respiratory distress and no labored breathing Cardiovascular: RRR, no murmur, no edema Gastrointestinal (Abdomen): normal bowel sounds, soft, nontender, no hepatosplenomegaly Musculoskeletal: Extremities: extremities normal to inspection Skin: no rashes, warm and dry Lymphatic: no cervical lymphadenopathy Results & Data Results & Data ([facility]) Vital Signs (Past 12 Hours) Vital Signs Temp Pulse Pulse Resp BP BP Pulse Ox 01/16/21 12:59 36.5 C 91 H 20 97/65 L 95 01/16/21 09:20 82 01/16/21 08:00 36.5 C 76 18 100/67 94 01/16/21 04:02 36.6 C 67 20 87/60 L 95 01/16/21 03:11 36.7 C 69 20 107/69 96 Laboratory Results 01/15/21 06:33 01/15/21 06:33 Chest tube output remains above 200 mL/day Diagnostic Findings Chest x-ray from today was independently reviewed. There is continued improvement in aeration of the left lower lung. Pigtail catheter remains in good position. PG Care Time/CCT Total # of Minutes Spent Total Time Spent with Patient: Total time spent is greater than 50% in coordination of care (as documented) at patient's floor/unit and/or counseling patient: Coding Level of Care Code 50864 Subseq Hosp Care Lvl 3 Diagnoses Positive QuantiFERON-TB Gold test R76.12 Pleural effusion J90 Abnormal chest CT R93.89 Shortness of breath R06.02 Time Spent (min) 40
--- NOTE | 2021-01-16 14:06 | XRay Report ---
SINGLE VIEW CHEST CLINICAL HISTORY: Follow-up pleural effusion. FINDINGS: An AP, portable, upright chest radiograph is compared to chest x-ray dated 01/15/2021 and co rrelated with chest CT dictated 01/12/2021. The cardiomediastinal silhouette is unremarkable. A pigtai l chest tube is again seen at the right lung base. Small right hydropneumothorax has not significant changed from yesterday. Consolidation is again seen throughout the right mid to lower lung. There is a small left pleural effusion with slight increase in left basilar opacities. The bony thorax is xenia sly intact. IMPRESSION: 1. A right-sided chest tube is unchanged in position. 2. Small hydropneumothorax with consolidation of the right lung has not significantly changed from ye . 3. Small left pleural effusion with slight increase in left basilar opacities. ACT 112: Negative or not required by law. Electronically signed by: Manuel Maravilla M.D. 01/16/2021 2:05 PM
--- NOTE | 2021-01-16 20:23 | Hospitalist Progress Note ---
Date of Service January 16, 2021 Assessment & Plan (1) Acute respiratory failure with hypoxia: 2nd to large right-sided pleural effusion, right lung collapse / trapped lung 2nd to the large pleural effusion, and post-thoracentesis pulmonary edema. resolved - off O2. respiratory status very stable. radiographically her right lung is improving. Chest tube remains for right-sided exudative pleural effusion - pulmonary managing. ?community-acquired pneumonia of right lung base -- procal negative; had received rocephin/zithromax but these now discontinued. Quantiferon gold testing has returned positive - see below. Appreciate [facility] ID consultation. Continue pulmonary toilet. (2) Positive QuantiFERON-TB Gold test: Highly suspicious for TB, especially in light of pleural effusion studies/cell counts/etc as well as clinical picture, [place], travel to [place], etc. It is not diagnostic of TB -- but [id number] the TB diagnosis is top of the differential for her illness. Cytologies from pleural fluid are negative. All AFB smears/cultures to date are negative. * infection control at [facility] and local health department notified of suspected TB; cont airborne isolation * urine for AFB ordered and pending * HIV negative; patient aware * if sputum AFBs are nondiagnostic on smear, the cultures may show AFB but may take 4+ weeks to grow * may need bronch since she has been unable to produce sputum even with induction * may need pleural biopsy for diagnosis; VATS is a possibility given ongoing hydropneumothorax; would need to Tx to tertiary care for VATs, pleural bx, etc. * [facility] ID consult complete; thank you very much for the consult & recommendations In terms of Rx of suspected TB - defer initiation of 4-drug regimen to pulmonary and/or ID. Ideally we have confirmation with +AFB. (3) Pleural effusion: RIGHT. Large. s/p right-sided chest tube placement on 01/12/[address] Pena. Exudative by lite's criteria. Bacterial fluid culture negative to date. AFB smear from fluid negative; culture pending - thus far negative. Tends to give low yield for AFB, however (UpToDate). 2nd to TB? cytologies negative - cancer unlikely. no empyema. not parapneumonic. all lymphocytes on cell counts - this is suspicious for TB. cont w/u for TB as above. appreciate Dr Pena and Dr Haro's assistance; defer management of chest tube to them. see above in "quantiferon" for other details. for pain control - norco prn. morphine prn. awaiting adenosine deaminase from pleural fluid. if >40 highly suspicious for TB. (4) Pneumothorax: small but improving. cont chest tube. cont incentive spirometry and pulmonary toilet. (5) Abnormal chest CT: RML/RLL collapse/consolidation. likely 2nd severe compressive atelectasis from large pleural effusion. IMPROVING with time & pulmonary toilet. Bacterial sputum cx negative. (6) Hyponatremia: resolved but Na borderline low at times, and K borderline high at times check cortisol in am (7) Lung consolidation: as above (8) Anorexia: 2nd to intra-thoracic pathology cont MVI. cont boost. cont marinol but increase to 2.5mg BID w/ meals. (9) DVT prophylaxis: lovenox (10) Complex care coordination: Updated Klarissa pt's mentor/day care supervisor at [employer], several times this past weekend. (she is keeping the pt's family informed via email with pt's permission). her phone # is [phone]. Parents names - Pedro Luis Glover - father Jacki Glover - mother both are presently in [place] international phone number for parents -- [phone] email -- [email or web address] pt's father, Pedro Luis Glover, extensively updated by phone on 01/14/21 as well as 01/16/21; questions answered Admission and Anticipated Discharge Date Admission Date: January 12, 2021 Subjective no events overnight tele stable appetite fair at best she is tired and bored no cough no dyspnea minimal pain right chest wall diarrhea has stopped Review of Systems Constitutional: + fatigue and + anorexia; no fever and no chills Respiratory: no hemoptysis and no wheezing Cardiovascular: as per Subjective / HPI; no orthopnea and no edema Gastrointestinal: no abdominal pain, no nausea and no vomiting Physical Exam Constitutional: + ill appearing; no acute distress and no altered mental status ENMT: external ear and nose normal, oropharynx normal Respiratory: no respiratory distress Auscultation: + diminished lung sounds (b/l bases, worse on right - continues to improve ) and + rales (right base - mild ); no rhonchi and no wheezes Cardiovascular: Rate/Rhythm: regular rate and regular rhythm Heart Sounds: normal S1 and normal S2; no murmur Vessels: posterior tibial pulses present and dorsalis pedis pulses present; no JVD Extremities: no edema Gastrointestinal (Abdomen): normal bowel sounds, soft, nontender, no hepatosplenomegaly Skin: no rashes, warm and dry Psychiatric: A+Ox3, euthymic affect Results & Data Results & Data ([facility]) Vital Signs (Past 12 Hours) Vital Signs Temp Pulse Pulse Resp BP BP Pulse Ox 01/16/21 19:22 36.9 C 87 18 94/64 L 95 01/16/21 17:40 36.7 C 83 20 97/65 L 95 01/16/21 15:06 74 01/16/21 12:59 36.5 C 91 H 20 97/65 L 95 01/16/21 09:20 82 All AFB cultures neg to date Cytologies NEGATIVE Pleural Fluid adenosine deaminase PENDING PG Care Time/CCT Total # of Minutes Spent Total Time Spent with Patient: Total time spent is greater than 50% in coordination of care (as documented) at patient's floor/unit and/or counseling patient: Coding Level of Care Code 97952 Subseq Hosp Care Lvl 2 Diagnoses Acute respiratory failure with hypoxia J96.01 Positive QuantiFERON-TB Gold test R76.12 Pleural effusion J90 Pneumothorax J95.811 Pneumothorax type: postprocedural Abnormal chest CT R93.89 Hyponatremia E87.1 Lung consolidation J18.1 Anorexia R63.0 DVT prophylaxis Z29.9 Complex care coordination Z71.89 (1) Pneumothorax Pneumothorax type: postprocedural Qualified Code(s): J95.811 - Postprocedural pneumothorax
[2021-01-17] MEDS: HYDROCODONE/ACETAMOPHEN 5/325MG TAB PO PRN ×2 (00:09→21:28)
[2021-01-17] MEDS: CEROVITE ADV FORMULA TAB PO SCH (08:12)
[2021-01-17] MEDS: SENNA 8.6 MG TAB PO SCH (08:13)
[2021-01-17] MEDS: POLYETHYLENE (MIRALAX) 17 GM PACK PO SCH (08:13)
[2021-01-17] MEDS: ENOXAPARIN INJ 40 MG/0.4 ML SYR SQ SCH (08:13)
[2021-01-17 10:06] LABS: BUN Creatinine Ratio 9.5 (10-20); Blood Urea Nitrogen 4 mg/dl (7-18); Calcium 8.7 mg/dl (8.5-10.1); Carbon Dioxide 31 mmol/L (21-32); Chloride 104 mmol/L (98-107); Creatinine Clr Calc Pharmacy 165.5 ml/min; Est GFR (African American) > 150.0 ml/min; Est GFR (Non-African American) 139.3 ml/min; Glucose 80 mg/dl (70-99); Potassium 4.8 mmol/L (3.5-5.1); Sodium 138 mmol/L (136-145)
[2021-01-17 10:15] LABS: Cortisol Random 15.67 mcg/dl; Vitamin D, 25 Hydrox 10.2 ng/ml (30-100)
[2021-01-17] MEDS ORDERED: ERGOCALCIFEROL 50,000 UNITS 1250 MCG CAP PO ONE (11:00)
--- NOTE | 2021-01-17 16:20 | Pulmonology Progress Note ---
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 Pleural fluid AFB stains were negative with cultures pending and sputum is negative for AFB with cultures pending. Her QuantiFERON was positive and pleural ADA is positive at 59, consistent with a diagnosis of pleural tuberculosis. Recommendations: 1. Pleural TB with effusion: Recommend starting RIPE therapy per ID and the patient will need to be followed with the [facility] department. 2. Pleural effusion: Output is decreasing. This should resolve with appropriate antituberculous therapy. Will check chest x-ray in the morning and likely discontinue the chest tube if output decreases at current rate. 3. Disposition: Per the [facility]. Plan discussed with patient at bedside. Questions were answered to the best of my ability. We will continue to follow with you. Admission and Anticipated Discharge Date Admission Date: January 12, 2021 Subjective Patient seen and examined. She is awake alert in no distress. She has some minimal pain at the chest tube insertion site but no fevers chills night sweats. Her appetite is good. She is anxious to potentially leave the hospital in the near future. Review of Systems Review of Systems: All systems reviewed & are unremarkable except as noted in HPI & below Physical Exam Constitutional: WD/WN, vitals as above Neck: trachea midline, no thyromegaly Respiratory: normal respiratory effort; no respiratory distress and no labored breathing Cardiovascular: RRR, no murmur, no edema Gastrointestinal (Abdomen): normal bowel sounds, soft, nontender, no hepatosplenomegaly Musculoskeletal: Extremities: extremities normal to inspection Skin: no rashes, warm and dry Lymphatic: no cervical lymphadenopathy Results & Data Results & Data ([facility]) Vital Signs (Past 12 Hours) Vital Signs Temp Pulse Resp BP Pulse Ox 01/17/21 15:12 36.8 C 82 19 88/57 L 94 01/17/21 12:28 36.6 C 83 17 91/62 L 91 01/17/21 07:57 36.8 C 80 17 95/64 L 96 Laboratory Results 01/15/21 06:33 06/30/21 09:20 Pleural ADA: 59 Diagnostic Findings No new imaging PG Care Time/CCT Total # of Minutes Spent Total Time Spent with Patient: Total time spent is greater than 50% in coordination of care (as documented) at patient's floor/unit and/or counseling patient: Coding Level of Care Code 89606 Subseq Hosp Care Lvl 3 Diagnoses Positive QuantiFERON-TB Gold test R76.12 Pleural effusion J90 Abnormal chest CT R93.89 Shortness of breath R06.02 Time Spent (min) 35
[2021-01-17] MEDS ORDERED: ETHAMBUTOL HCL 400 MG TAB PO SCH (17:30)
[2021-01-17] MEDS ORDERED: ETHAMBUTOL HCL 400 MG TAB PO ONE (17:45)
[2021-01-17] MEDS: PYRAZINAMIDE 500 MG TABLET PO SCH (18:42)
[2021-01-17] MEDS: rifAMPin 300 MG CAPSULE PO SCH (18:43)
[2021-01-17] MEDS: ISONIAZID 100 MG TAB PO SCH (18:43)
--- NOTE | 2021-01-17 20:40 | Hospitalist Progress Note ---
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 HIV negative. Spoke with Dr Haro today - to begin "RIPE" treatment (4-drug TB regimen -- INH, rifampin, ethambutol, pyrazinamide). I spoke with pharmacy and we confirmed her doses of these meds. Side effects d/w patient. Health department aware of her case. Infection control involved at [facility]. Airborne precautions remain in place. (2) Acute respiratory failure with hypoxia: 2nd to large right-sided pleural effusion, right lung collapse / trapped lung 2nd to the large pleural effusion, and post-thoracentesis pulmonary edema. resolved - off O2. respiratory status very stable. radiographically her right lung is improving. Chest tube remains for right-sided exudative pleural effusion - pulmonary managing. Likely to be d/c tomorrow. ?community-acquired pneumonia of right lung base -- procal negative; had received rocephin/zithromax but these now discontinued. Quantiferon gold testing has returned positive - see above. Appreciate [facility] ID consultation. Continue pulmonary toilet. (3) Positive QuantiFERON-TB Gold test: Highly suspicious for TB, especially in light of pleural effusion studies/cell counts/etc as well as clinical picture, [place], travel to [place], etc. It is not diagnostic of TB -- but [id number] the TB diagnosis is top of the differential for her illness. Cytologies from pleural fluid are negative. All AFB smears/cultures to date are negative. In terms of Rx of suspected TB - see above in "tuberculous pleuritis." (4) Pleural effusion: RIGHT. Large. s/p right-sided chest tube placement on 01/12/[address] Pena. Exudative by lite's criteria. Bacterial fluid culture negative to date. AFB smear from fluid negative; culture pending - thus far negative. Tends to give low yield for AFB, however (UpToDate). 2nd to TB? cytologies negative - cancer unlikely. no empyema. not parapneumonic. all lymphocytes on cell counts - this is suspicious for TB. cont w/u for TB as above. appreciate Dr Pena and Dr Haro's assistance; defer management of chest tube to them. pleural fluid adenosine demaminase returned high - see above discussion. (5) Pneumothorax: small but improving. cont chest tube. cont incentive spirometry and pulmonary toilet. (6) Abnormal chest CT: RML/RLL collapse/consolidation. likely 2nd severe compressive atelectasis from large pleural effusion. IMPROVING with time, chest tube, & pulmonary toilet. (7) Hyponatremia: resolved but Na borderline low at times, and K borderline high at times checked cortisol level - wnl (8) Lung consolidation: as above (9) Anorexia: 2nd to probable tuberculous pleuritis. cont MVI. cont boost. cont marinol 2.5mg BID w/ meals. (10) DVT prophylaxis: lovenox (11) Complex care coordination: Updated Klarissa pt's mentor/custodial supervisor at [employer] department, several times this past weekend. (she is keeping the pt's family informed via email with pt's permission). her phone # is [phone]. Parents names - Pedro Luis Glover - father Jacki Glover - mother both are presently in [place] international phone number for parents -- [phone] email -- [email or web address] pt's father, Pedro Luis Glover, extensively updated by phone on 01/14/21 as well as 01/16/21; questions answered will update him January 18 Admission and Anticipated Discharge Date Admission Date: January 12, 2021 Subjective tele again overnight wnl appetite improved with larger dose of marinol no dizziness or lightheadedness despite the low BPs she is aware of pleural adenosine deaminase level being high which is concerning for TB given her clinical picture RIPE therapy to be initiated; counseled her that rifampin will make her urine orange other side effects discussed no new issues Review of Systems Constitutional: + fatigue and + weakness; no fever, no chills, no body aches and no anorexia Respiratory: + pain on inspiration (R chest ); no cough, no dyspnea and no dyspnea on exertion Cardiovascular: no dyspnea on exertion, no orthopnea and no edema Gastrointestinal: no abdominal pain, no nausea and no vomiting Physical Exam Constitutional: no acute distress and no altered mental status ENMT: external ear and nose normal, oropharynx normal Respiratory: no respiratory distress Auscultation: + diminished lung sounds (b/l bases, worse on right - continues to improve ); no rales, no rhonchi and no wheezes Cardiovascular: Rate/Rhythm: regular rate and regular rhythm Heart Sounds: normal S1 and normal S2; no murmur Vessels: posterior tibial pulses present and dorsalis pedis pulses present; no JVD Extremities: no edema Gastrointestinal (Abdomen): normal bowel sounds, soft, nontender, no hepatosplenomegaly Skin: no rashes, warm and dry Psychiatric: A+Ox3, euthymic affect Results & Data Results & Data ([facility]) Vital Signs (Past 12 Hours) Vital Signs Temp Pulse Resp BP BP Pulse Ox 01/17/21 19:11 37.2 C 89 18 94/63 L 98 01/17/21 15:12 36.8 C 82 19 88/57 L 94 01/17/21 12:28 36.6 C 83 17 91/62 L 91 Laboratory Results Laboratory Results - last 24 hr 01/12/21 01/12/21 01/13/21 16:24 16:24 11:29 Sodium Potassium Chloride Carbon Dioxide Anion Gap BUN Creatinine Est Cr Clr Drug Dosing Est GFR ( Amer) Est GFR (Non-Af Amer) BUN/Creatinine Ratio Glucose Calcium 25-OH Vitamin D Total Random Cortisol Pleural Cholesterol 88 Stl C. diff Tox B Gene Urine Legionella Ag Mycoplasma pneumon IgM 393 Miscellaneous Test REPORT 01/13/21 01/17/21 01/17/21 Unknown 09:20 09:20 Sodium 138 Potassium 4.8 Chloride 104 Carbon Dioxide 31 Anion Gap 3.0 BUN 4 L Creatinine 0.45 L Est Cr Clr Drug Dosing 165.5 Est GFR ( Amer) > 150.0 Est GFR (Non-Af Amer) 139.3 BUN/Creatinine Ratio 9.5 L Glucose 80 Calcium 8.7 25-OH Vitamin D Total 10.2 L Random Cortisol 15.67 Pleural Cholesterol Stl C. diff Tox B Gene Urine Legionella Ag SEE NOTE Mycoplasma pneumon IgM Miscellaneous Test 01/17/21 Unknown Sodium Potassium Chloride Carbon Dioxide Anion Gap BUN Creatinine Est Cr Clr Drug Dosing Est GFR ( Amer) Est GFR (Non-Af Amer) BUN/Creatinine Ratio Glucose Calcium 25-OH Vitamin D Total Random Cortisol Pleural Cholesterol Stl C. diff Tox B Gene Negative Cdiff Gene Urine Legionella Ag Mycoplasma pneumon IgM Miscellaneous Test PG Care Time/CCT Total # of Minutes Spent Total Time Spent with Patient: Total time spent is greater than 50% in coordination of care (as documented) at patient's floor/unit and/or counseling patient: Coding Level of Care Code None Diagnoses Tuberculous pleuritis A15.6 Acute respiratory failure with hypoxia J96.01 Positive QuantiFERON-TB Gold test R76.12 Pleural effusion J90 Pneumothorax J95.811 Pneumothorax type: postprocedural Abnormal chest CT R93.89 Hyponatremia E87.1 Lung consolidation J18.1 Anorexia R63.0 DVT prophylaxis Z29.9 Complex care coordination Z71.89 Comment see separate "PG E/M" entry dated 01/17/21 for coding (1) Pneumothorax Pneumothorax type: postprocedural Qualified Code(s): J95.811 - Postprocedural pneumothorax
--- NOTE | 2021-01-17 23:34 | Billing Data ---
Date of Service January 17, 2021 Coding Level of Care Code 29338 Subseq Hosp Care Lvl 3
--- NOTE | 2021-01-18 07:34 | XRay Report ---
XR chest 1V portable HISTORY: Follow-up pleural effusion COMPARISON: Chest 01/16/2021. FINDINGS: Right basilar pleural pigtail catheter remains unchanged in position. Small bilateral pleur al effusions and bibasilar densities persist. Small of gas within the right pleural space is also unc hanged. The heart remains mildly enlarged. IMPRESSION: 1. No change in the small right hydropneumothorax. The right pleural pigtail catheter remains unchang ed in position. 2. Small left pleural effusion and bibasilar densities persist. ACT 112: Negative or not required by law. Electronically signed by: Edgar Dowell M.D. 01/18/2021 7:32 AM
[2021-01-18] MEDS: rifAMPin 300 MG CAPSULE PO SCH (09:07)
[2021-01-18] MEDS: ISONIAZID 100 MG TAB PO SCH (09:08)
[2021-01-18] MEDS: ETHAMBUTOL HCL 400 MG TAB PO SCH (09:08)
[2021-01-18] MEDS: ENOXAPARIN INJ 40 MG/0.4 ML SYR SQ SCH (09:08)
[2021-01-18] MEDS: PYRAZINAMIDE 500 MG TABLET PO SCH (09:08)
[2021-01-18] MEDS: HYDROCODONE/ACETAMOPHEN 5/325MG TAB PO PRN (09:09)
[2021-01-18] MEDS: CEROVITE ADV FORMULA TAB PO SCH (09:09)
[2021-01-18] MEDS: POLYETHYLENE (MIRALAX) 17 GM PACK PO SCH (09:09)
[2021-01-18] MEDS: SENNA 8.6 MG TAB PO SCH (09:09)
--- NOTE | 2021-01-18 09:26 | Procedure Note ---
Procedure Note Date of Service January 18, 2021 Removal of right-sided 14 Indonesian pigtail catheter. [employer] Dr. Haro Estimated blood loss none Anesthesia none Procedure: The chest tubes had decreasing output. Chest x-ray demonstrates improvement in the pleural effusion. The pleural effusion has been diagnosed as likely tuberculous pleuritis and will likely resolve with anti-TB medications. No need for additional drainage. The procedure was discussed with the patient. She agreed to proceed. The adhesive dressing was taken down. The locking mechanism for the pigtail catheter was fully released. On full expiration, the catheter was removed and an occlusive dressing applied over the insertion site. The patient tolerated th e procedure well without obvious complication. Coding CPT Codes Pulmonary/Thoracic - Pulmonary and Thoracic: 36220 Remove lung catheter ( [id number]) [facility] Codes (Charges) Pulmonary/Thoracic Procedure 1: Pulmonary and Thoracic: 32269 Remove lung catheter
--- NOTE | 2021-01-18 09:29 | Pulmonology Progress Note ---
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 Pleural fluid AFB stains were negative with cultures pending and sputum is negative for AFB with cultures pending. Her QuantiFERON was positive and pleural ADA is positive at 59, consistent with a diagnosis of pleural tuberculosis. Recommendations: 1. Pleural TB with effusion: RIPE therapy per ID and the patient will need to be followed with the [facility] department. 2. Pleural effusion: Pigtail catheter removed this morning. She does have a small left-sided effusion which may be the same process. Would not recommend tapping unless the patient should have increasing symptoms. 3. Disposition: Per the [facility] department. Plan discussed with patient at bedside. Questions were answered to the best of my ability. We will sign off. Feel free to contact us if we can be of additional assistance. Admission and Anticipated Discharge Date Admission Date: January 12, 2021 Subjective Patient without complaints this morning. She has been initiated on her antituberculous therapy. No fevers chills night sweats. Her pain is adequately controlled. She said minimal output from the chest tube and x-ray shows left- sided effusion. Physical Exam Constitutional: WD/WN, vitals as above Neck: trachea midline, no thyromegaly Respiratory: normal respiratory effort; no respiratory distress and no labored breathing Cardiovascular: RRR, no murmur, no edema Gastrointestinal (Abdomen): normal bowel sounds, soft, nontender, no hepatosplenomegaly Musculoskeletal: Extremities: extremities normal to inspection Skin: no rashes, warm and dry Lymphatic: no cervical lymphadenopathy Results & Data Results & Data ([facility]) Vital Signs (Past 12 Hours) Vital Signs Temp Pulse Pulse Resp BP Pulse Ox 01/18/21 07:48 37.1 C 88 20 98/54 L 95 01/18/21 03:11 36.3 C L 71 17 97/63 L 96 01/18/21 00:26 85 01/17/21 23:45 36.7 C 74 18 88/59 L 96 Laboratory Results 01/15/21 06:33 01/17/21 09:20 Diagnostic Findings Chest x-ray from today was reviewed. The right-sided pigtail catheter is in good position with continued decrease of the effusion. There is development of a small. PG Care Time/CCT Total # of Minutes Spent Total Time Spent with Patient: Total time spent is greater than 50% in coordination of care (as documented) at patient's floor/unit and/or counseling patient: Coding Level of Care Code 97899 Subseq Hosp Care Lvl 2 Diagnoses Positive QuantiFERON-TB Gold test R76.12 Pleural effusion J90 Abnormal chest CT R93.89 Shortness of breath R06.02
--- NOTE | 2021-01-18 21:14 | Hospitalist Progress Note ---
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 None have shown growth, could take 1-2 months for growth. HIV negative. "RIPE" treatment (4-drug TB regimen -- INH, rifampin, ethambutol, pyrazinamide) - initiated 01/17/21. Side effects d/w patient. Health department aware of her case. Infection control involved at [facility]. Airborne precautions remain in place. Pulmonary following. Jewell LEE telehealth saw this week. Appreciate everyone's help with her case. (2) Acute respiratory failure with hypoxia: RESOLVED. 2nd to large right-sided pleural effusion, right lung collapse / trapped lung 2nd to the large pleural effusion, and post-thoracentesis pulmonary edema. off O2 for several days. respiratory status very stable. Chest tube d/c today by Dr Haro. Cause of resp failure - tuberculous pleuritis (suspected/presumed). (3) Positive QuantiFERON-TB Gold test: Highly suspicious for TB, especially in light of pleural effusion studies/cell counts/etc as well as clinical picture, [place], travel to [place], etc. It is not diagnostic of TB -- but [id number] the TB diagnosis is top of the differential for her illness. Cytologies from pleural fluid are negative. All AFB smears/cultures to date are negative. In terms of Rx of suspected TB - see above in "tuberculous pleuritis." (4) Pleural effusion: RIGHT. Large. s/p right-sided chest tube placement on 01/12/[address] removed today, 01/18/21, by Dr Haro. Exudative by lite's criteria. Bacterial fluid culture negative to date. AFB smear from fluid negative; culture pending - thus far negative. Tends to give low yield for AFB, however (UpToDate). Suspected to be due to TB. cytologies negative - cancer unlikely. no empyema. not parapneumonic. all lymphocytes on cell counts - this is suspicious for TB. pleural fluid adenosine demaminase returned high - also suspicious for TB. (5) Pneumothorax: small but improving. CT d/c today. cont incentive spirometry and pulmonary toilet. (6) Abnormal chest CT: RML/RLL collapse/consolidation. likely 2nd severe compressive atelectasis from large pleural effusion. IMPROVING with time, chest tube, & pulmonary toilet. (7) Hyponatremia: resolved but Na borderline low at times, and K borderline high at times checked cortisol level - wnl follow with bmp in am (8) Lung consolidation: as above (9) Anorexia: 2nd to probable tuberculous pleuritis. cont MVI. cont boost. cont marinol 2.5mg BID w/ meals. (10) DVT prophylaxis: lovenox (11) Vitamin D deficiency: level = 10. ergocalciferol 50,000 units qweekly x 8 weeks. first dose was 01/17. 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 (she is keeping the pt's family informed via email with pt's permission). her phone # is [phone]. 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 Admission and Anticipated Discharge Date Admission Date: January 12, 2021 Subjective no new complaints with the marinol her appetite is modestly better and nausea is improved no cough no CARSON mild right chest pain where CT had been - CT was pulled this am looking forward to getting home doing ok so far on 4-drug TB regimen having orange urine as expected from rifampin but no other side effects tele stable overnight she understands that she will need 2 weeks of isolation at home post-d/c Review of Systems Constitutional: + fatigue; no fever and no chills Respiratory: no cough Cardiovascular: as per Subjective / HPI; no dyspnea at rest, no dyspnea on exertion, no orthopnea, no lightheadedness and no edema Gastrointestinal: no abdominal pain, no vomiting and no diarrhea/loose stools Physical Exam Constitutional: no acute distress and no altered mental status ENMT: external ear and nose normal, oropharynx normal Respiratory: no respiratory distress Auscultation: + diminished lung sounds (b/l bases - mild - cont to improve ); no rales, no rhonchi and no wheezes Cardiovascular: Rate/Rhythm: regular rate and regular rhythm Heart Sounds: normal S1 and normal S2; no murmur Vessels: posterior tibial pulses present and dorsalis pedis pulses present; no JVD Extremities: no edema Gastrointestinal (Abdomen): normal bowel sounds, soft, nontender, no hepatosplenomegaly Skin: no rashes, warm and dry Psychiatric: A+Ox3, euthymic affect Results & Data Results & Data ([facility]) Vital Signs (Past 12 Hours) Vital Signs Temp Pulse Pulse Resp BP Pulse Ox Pulse Ox 01/18/21 20:24 37.0 C 95 H 18 94/61 L 93 01/18/21 16:00 78 95 01/18/21 15:34 36.5 C 93 H 20 95/59 L 96 01/18/21 11:56 37.4 C 78 18 91/62 L 96 all AFB cultures to date negative PG Care Time/CCT Total # of Minutes Spent Total Time Spent with Patient: Total time spent is greater than 50% in coordination of care (as documented) at patient's floor/unit and/or counseling patient: Coding Level of Care Code 00452 Subseq Hosp Care Lvl 3 Diagnoses Tuberculous pleuritis A15.6 Acute respiratory failure with hypoxia J96.01 Positive QuantiFERON-TB Gold test R76.12 Pleural effusion J90 Pneumothorax J95.811 Pneumothorax type: postprocedural Abnormal chest CT R93.89 Hyponatremia E87.1 Lung consolidation J18.1 Anorexia R63.0 DVT prophylaxis Z29.9 Vitamin D deficiency E55.9 Complex care coordination Z71.89 (1) Pneumothorax Pneumothorax type: postprocedural Qualified Code(s): J95.811 - Postprocedural pneumothorax
[2021-01-19] MEDS ORDERED: SODIUM CHLOR 7% 4 ML NEB NEB ONE (07:00)
[2021-01-19 07:18] LABS: Basophils # (auto) 0.01 K/uL (0-0.2); Basophils % (auto) 0.2 %; Eosinophils % (auto) 4.1 %; Hematocrit (blood only) 37.3 % (37-47); Hemoglobin 12.4 g/dL (12.0-16.0); Immature Granulocytes # (auto) 0.02 K/uL (0.00-0.02); Immature Granulocytes % (auto) 0.4 %; Lymphocytes # (auto) 0.76 K/uL (1.2-3.4); Lymphocytes % (auto) 15.5 %; Mean Corpuscular Hemoglobin 27.1 pg (25-34); Mean Corpuscular Hgb Conc 33.2 g/dL (32-36); Mean Corpuscular Volume 81.4 fL (80-100); Mean Platelet Volume 8.8 fL (7.4-10.4); Monocytes # (auto) 0.65 K/uL (0.11-0.59); Monocytes % (auto) 13.3 %; Neutrophils # (auto) 3.26 K/uL (1.4-6.5); Neutrophils % (auto) 66.5 %; Platelet Count 252 K/uL (130-400); RDW Coefficient of Variation 12.7 % (11.5-14.5); RDW Standard Deviation 37.6 fL (36.4-46.3); Red Blood Count 4.58 M/uL (4.2-5.4)
[2021-01-19 07:46] LABS: Albumin Level 2.7 gm/dl (3.4-5.0); Calcium 8.9 mg/dl (8.5-10.1); Creatinine Clr Calc Pharmacy 129.1 ml/min; Est GFR (African American) 148.5 ml/min; Est GFR (Non-African American) 128.1 ml/min; Magnesium 2.3 mg/dl (1.8-2.4); Potassium 5.5 mmol/L (3.5-5.1)
[2021-01-19 07:56] LABS: Albumin Globulin Ratio 0.8 (0.9-2); Bilirubin,Total 0.6 mg/dl (0.2-1); Globulin 3.3 gm/dl (2.5-4.0); Thyroid Stimulating Hormone 2.32 uIu/ml (0.300-4.500)
[2021-01-19] MEDS: ENOXAPARIN INJ 40 MG/0.4 ML SYR SQ SCH (08:34)
[2021-01-19] MEDS: ETHAMBUTOL HCL 400 MG TAB PO SCH (08:35)
[2021-01-19] MEDS: ISONIAZID 100 MG TAB PO SCH (08:35)
[2021-01-19] MEDS: PYRAZINAMIDE 500 MG TABLET PO SCH (08:35)
[2021-01-19] MEDS: SENNA 8.6 MG TAB PO SCH (08:36)
[2021-01-19] MEDS: CEROVITE ADV FORMULA TAB PO SCH (08:36)
[2021-01-19] MEDS: rifAMPin 300 MG CAPSULE PO SCH (08:36)
[2021-01-19] MEDS: POLYETHYLENE (MIRALAX) 17 GM PACK PO SCH (08:36)
[2021-01-19] MEDS ORDERED: SODIUM CHLORIDE 0.9% 1000ML 500 ML IV ONE (11:27)
--- NOTE | 2021-01-20 11:38 | Discharge Summary ---
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 She presents to the ER after being seen at [facility] for increasing shortness of breath and cough. She reports she was seen at [facility] about a week or 2 ago with neck and back pain as well as pain under the anterior ribs. She was told at that time it may be from stress and was told to take ibuprofen. She returned there today with increasing shortness of breath and had a chest x-ray which showed a complete white out of the right lung with a large pleural effusion. She came to the ER and had a CT angiogram of the chest which was negative for PE but showed large right pleural effusion occupying majority of the right hemithorax resulting in near complete collapse of the right lung with resultant leftward midline shift, as well as a small left pleural effusion with left lung base atelectasis. There is no adenopathy seen. She had a mild leukopenia with lymphopenia, but otherwise her CMP, troponin, proBNP, and Covid test were all normal/negative. She has been vaccinated against Covid as well as tuberculosis with the BCG vaccine in [place]. She denies any fevers or chills, no night sweats or weight loss. Other than the neck, back, and rib pain described above, she denies any other joint pains or m yalgias. No changes in bowel habits, no urinary symptoms. No rashes. [place] the [place] from [place] and then traveled back there for about 1 month in September 2020. She has been home here in the [place] since the end of September. She denies any known contacts with tuberculosis or any other illnesses. She has otherwise been very healthy her whole life and has never been hospitalized previously. She does not smoke or vape. She drinks alcohol socially, and does not do any drugs. Pulmonology saw her in the ER and placed a chest tube and initially 1.5 L of clear yellow fluid was drained. Fortunately, she was 98% on room air even prior to having the chest tube placed. Vital signs were otherwise stable. She will be admitted for work-up for large right pleural effusion with chest tube management. I discussed her care with pulmonology at the time of admission. 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 Discharge Exam Constitutional no acute distress and no altered mental status ENMT external ear and nose normal, oropharynx normal Respiratory no respiratory distress Auscultation: + diminished lung sounds (b/l bases - mild - cont to improve ); no rales, no rhonchi and no wheezes former chest tube site, right chest, clean/dry/intact Cardiovascular Rate/Rhythm: regular rate and regular rhythm Heart Sounds: normal S1 and normal S2; no murmur Vessels: posterior tibial pulses present and dorsalis pedis pulses present; no JVD Extremities: no edema Gastrointestinal (Abdomen) normal bowel sounds, soft, nontender, no hepatosplenomegaly Skin no rashes, warm and dry Psychiatric A+Ox3, euthymic affect Lymphatic no cervical lymphadenopathy Discharge Data Allergies Allergy/AdvReac Type Severity Reaction Status Date / Time No Known Allergies Allergy Verified 01/12/21 14:59 Consultations [facility] Pulmonology [facility] Infection Control Nurse [facility] Infectious Diseases Telehealth Consultation Procedures Performed Right-sided chest tube placement - Azeb Pena MD Ordered Studies Chest CTA 01/12/21 13:00 CT angio chest PE protocol CT DOSE: 362.62 mGycm HISTORY: 25 years-old Female with PE. Acute cough with shortness of breath TECHNIQUE: Multiple CTA images of the chest were obtained after the intravenous administration of 120 ml Optiray. Coronal and sagittal MIPS were obtained from the axial data set and were submitted for review. All measurements were obtained according to NASCET criteria. A dose lowering technique was utilized adhering to the principles of ALARA. COMPARISON: None. FINDINGS: CTA: The heart is normal in size. No pericardial effusion. There is no thoracic aortic aneurysm or dissection. There is patency of the imaged great vessels. No pulmonary emboli identified. Streak artifact from the contrast bolus within the right subclavian and brachycephalic veins and SVC limits the study. CT CHEST: Unremarkable thyroid. No adenopathy identified. Small left pleural effusion with mild linear subsegmental left lung base consolidation and left basilar groundglass densities suggestive of atelectasis. There is atelectasis with near complete collapse of the right lung. A small portion of the right upper lobe and superior segment right lower lobe are aerated. No obstructing endobronchial mass identified. No pleural mass identified. There is leftward midline shift. No acute process of the imaged upper abdomen. There is no pneumoperitoneum. Unremarkable soft tissues and breast parenchyma. No acute fracture. IMPRESSION: 1. No pulmonary emboli. 2. Large right pleural effusion occupies the majority of the right hemithorax resulting in near-complete collapse of the right lung. There is resultant leftward midline shift. 3. Small left pleural effusion with left lung base atelectasis. 4. No adenopathy. ACT 112: Negative or not required by law. The above report was generated using voice recognition software. It may contain grammatical, syntax or spelling errors. Electronically signed by: Baldomero Carl M.D. 01/12/2021 2:14 PM Chest X-Ray 01/12/21 17:11 SINGLE VIEW CHEST CLINICAL HISTORY: Chest tube placement. FINDINGS: An AP, portable, upright chest radiograph is correlated with chest CT dated 01/12/2021. The cardiomediastinal silhouette is unremarkable. A pigtail chest tube has been placed at the right lung base. There is a moderate residual pleural effusion. This has significantly decreased in size from today's earlier examination. A small pleural effusion is seen at the left lung base. Persistent atelectasis is noted in the right upper lobe. There is reexpansion edema suggested in the right lung. There is a small right apical pneumothorax with approximately 8 mm of pleural separation. The bony thorax is grossly intact. IMPRESSION: 1. A chest tube has been placed at the right lung base. 2. Small right apical pneumothorax. 3. There is a moderate residual right pleural effusion. This has significantly decreased in size from today's CT scan. 4. There is reexpansion edema noted in the right lung. 5. A small pleural effusion is seen on the left.. ACT 112: Negative or not required by law. Electronically signed by: Manuel Maravilla M.D. 01/12/2021 5:55 PM Chest X-Ray 01/12/21 18:26 SINGLE VIEW CHEST CLINICAL HISTORY: Dyspnea. Hypoxia. FINDINGS: An AP, portable, upright chest radiograph is correlated with chest x- ray and chest CT performed earlier the same day 01/12/2021. The cardiomediastinal silhouette is unremarkable. A pigtail chest tube is again seen at the right lung base. There is a moderate residual pleural effusion. This appears to have modestly increased in size from today's earlier x-ray. There is increasing consolidation/edema throughout the right lung. A small left pleural effusion is noted. A small right apical pneumothorax has modestly increased in size. The bony thorax is grossly intact. IMPRESSION: 1. A right-sided chest tube is unchanged in position. 2. A small right apical pneumothorax has modestly increased in size from today's earlier x-ray. 3. There is a moderate residual right pleural effusion. This appears modestly increased in size from today's earlier x-ray. 4. There is increasing consolidation/edema seen throughout the right lung. 5. A small pleural effusion is seen on the left. ACT 112: Negative or not required by law. Electronically signed by: Manuel Maravilla M.D. 01/12/2021 7:20 PM Chest X-Ray 01/13/21 07:00 XR chest 1V portable CLINICAL HISTORY: Abnormal chest x-ray. Follow-up study COMPARISON STUDY: 01/12/2021 FINDINGS: There is no change in the position of the pigtail right-sided pleural catheter. There is a persistent moderate to large right pleural effusion with associated right lung air space opacities and air bronchograms.[No pneumothorax is visualized. Minimal left basilar airspace opacities are likely atelectatic IMPRESSION: 1. Persistent moderate to large right pleural effusion with right lung consolidation air bronchograms 2. No change in position of the right-sided pigtail pleural catheter 3. Left basilar opacities consistent with atelectatic ACT 112: Negative or not required by law. Electronically signed by: Colton Cook M.D. 01/13/2021 7:17 AM Chest X-Ray 01/14/21 07:00 SINGLE VIEW CHEST CLINICAL HISTORY: Follow-up pleural effusion. FINDINGS: An AP, portable, upright chest radiograph is compared to chest x-ray dated 01/13/2021 and correlated with chest CT dictated 01/12/2021. The cardiomediastinal silhouette is unremarkable. A pigtail chest tube is again seen at the right lung base. Right hydropneumothorax has not significant changed from yesterday. Consolidation is again seen throughout the right mid to lower lung. There is a small left pleural effusion with left basilar opacities. The bony thorax is grossly intact. IMPRESSION: 1. A right-sided chest tube is unchanged in position. 2. Right hydropneumothorax with consolidation of the right lung has not significantly changed from yesterday. 3. Small left pleural effusion with left basilar opacities. ACT 112: Negative or not required by law. Electronically signed by: Manuel Maravilla M.D. 01/14/2021 7:39 AM Chest X-Ray 01/15/21 07:00 XR chest 1V portable CLINICAL HISTORY: f/u COMPARISON STUDY: Chest radiograph January 14, 2021. Chest CT January 12, 2021. FINDINGS: Right basilar pleural pigtail catheter remains in place. Right lung aeration has significantly improved since prior exam. The previously described right hydropneumothorax has decreased. There is trace residual right pleural gas. There is no left pneumothorax. There is no evidence for pulmonary edema. Right basilar and midlung opacity persists but has improved. IMPRESSION: Right pleural pigtail catheter in place. Significant improvement in right lung aeration with decrease in right mid and lower lung airspace opacity with a small right hydropneumothorax. ACT 112: Negative or not required by law. Electronically signed by: Misha Stewart M.D. 01/15/2021 11:11 AM Chest X-Ray 01/16/21 11:15 SINGLE VIEW CHEST CLINICAL HISTORY: Follow-up pleural effusion. FINDINGS: An AP, portable, upright chest radiograph is compared to chest x-ray dated 01/15/2021 and correlated with chest CT dictated 01/12/2021. The cardiomediastinal silhouette is unremarkable. A pigtail chest tube is again seen at the right lung base. Small right hydropneumothorax has not significant changed from yesterday. Consolidation is again seen throughout the right mid to lower lung. There is a small left pleural effusion with slight increase in left basilar opacities. The bony thorax is grossly intact. IMPRESSION: 1. A right-sided chest tube is unchanged in position. 2. Small hydropneumothorax with consolidation of the right lung has not significantly changed from yesterday. 3. Small left pleural effusion with slight increase in left basilar opacities. ACT 112: Negative or not required by law. Electronically signed by: Manuel Maravilla M.D. 01/16/2021 2:05 PM Chest X-Ray 01/18/21 07:00 XR chest 1V portable HISTORY: Follow-up pleural effusion COMPARISON: Chest 01/16/2021. FINDINGS: Right basilar pleural pigtail catheter remains unchanged in position. Small bilateral pleural effusions and bibasilar densities persist. Small of gas within the right pleural space is also unchanged. The heart remains mildly enlarged. IMPRESSION: 1. No change in the small right hydropneumothorax. The right pleural pigtail catheter remains unchanged in position. 2. Small left pleural effusion and bibasilar densities persist. ACT 112: Negative or not required by law. Electronically signed by: Edgar Dowell M.D. 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 None have shown growth, could take 1-2 months for growth. HIV negative. "RIPE" treatment (4-drug TB regimen -- INH, rifampin, ethambutol, pyrazinamide) - initiated 01/17/21. Side effects d/w patient. [facility] has been made aware of her suspected TB, and they will be providing directly observed therapy post-discharge as well as coordinating her overall TB treatment. Infection control at [facility] was heavily involved during her hospitalization. Patient will remain in home isolation for 2 weeks post-discharge. [facility] Infectious Disease via Telehealth Consultation also was suspicious that TB was at the top of the differential, and advised initiation of RIPE if her pleural fluid adenosine deaminase returned high. (2) Acute respiratory failure with hypoxia: RESOLVED. 2nd to large right-sided pleural effusion due to suspected TB, right lung collapse / trapped lung 2nd to the large pleural effusion, and post-chest tube pulmonary edema. Was initially in room air at time of ER presentation, but she developed post- chest tube pulmonary edema with subsequent need for high-flow NC O2 and diuresis. Following such her O2 requirements decreased, and later in her stay her NC O2 was fully weaned off. Her respiratory status remained stable after her chest tube was discontinued and the O2 was stopped. O2 sats in room air were well within normal limits at discharge. (3) Positive QuantiFERON-TB Gold test: Highly suspicious for TB, especially in light of pleural effusion studies/cell counts/etc as well as clinical picture, [place], travel to [place], etc. It is not diagnostic of TB -- but [id number] the TB diagnosis is top of the differential for her illness. Cytologies from pleural fluid were negative. All AFB smears/cultures were negative while here, but the cultures could take 1- 2 months to show AFB growth. In terms of Rx of suspected TB - see above in "tuberculous pleuritis." (4) Pleural effusion: RIGHT. Large. s/p right-sided chest tube placement on 01/12/[address] Azeb Pena. [address] removed on 01/18/[address] Lul Haro. Minimal pleural fluid on chest x-ray before discharge. Exudative by lite's criteria. Bacterial fluid culture negative. AFB smear from fluid negative; culture pending - thus far negative. Tends to give low yield for AFB, however (per UpToDate). Suspected to be due to TB however. Cytologies were negative - cancer not suspected and unlikely. no empyema. not parapneumonic in nature. Differential on cell counts was nearly all lymphocytes - this is suspicious for TB. Pleural fluid adenosine deaminase returned high - also suspicious for TB. Any residual pleural fluid should fully resolve with TB treatment. (5) Pneumothorax: small but improving on chest imaging. cont incentive spirometry and pulmonary toilet post-discharge. (6) Abnormal chest CT: RML/RLL collapse/consolidation. Likely 2nd severe compressive atelectasis from large pleural effusion. IMPROVED with time, chest tube, & pulmonary toilet. (7) Hyponatremia: Resolved Na level was 138 on day of discharge. Due to occasional borderline low sodium at times, and K being high-normal at times, an AM cortisol level was checked and was within normal limits at 15. (8) Lung consolidation: as above (9) Anorexia: 2nd to probable tuberculous pleuritis. cont MVI. cont boost. cont marinol 2.5mg daily with a meal for 7 additional days post-discharge. (10) Vitamin D deficiency: level = 10. ergocalciferol 50,000 units qweekly x 8 weeks. first dose was 01/17. (11) Hypotension: Patient's BPs were low throughout her stay. For 3-4 days before discharge her systolic BPs were in the 90s. Despite such she had no dizziness or lightheadedness. Creatinine was normal even with this BP range. Cortisol level was 15.6. Possible that marinol was causing some BP suppression. Advised good hydration post-discharge. Follow BPs carefully. (12) Hyperkalemia: Patient had high-normal or minimally elevated K levels during the visit. K level on day of discharge was 5.2. Cortisol level was normal at 15.6. Secondary adrenal insufficiency due to TB is possible but unlikely given her normal AM cortisol. I cannot rule out a minimal amount of hemolysis leading to spurious K levels. If her low BPs continue, if K levels continue to be high-normal, etc consideration towards a formal cosyntropin stimulation test should be entertained. She should have a BMP within 5-7 days post-discharge to ensure stability of Na, K, and Creatinine. Total Time Total Time Spent Total Time Spent (In Minutes): 60 Total Time Includes: Examination of the Patient, Discharge Planning, Medication Reconciliation and Communication With Other Providers Discharge Plan Discharge Items Patient Disposition: Home - Self-Care Reason For Visit: LARGE PLEURAL EFFUSION Discharge Diagnosis: Large right-sided pleural effusion due to suspected TUBERCULOSIS Activity: As commented below Activity Comment: gradually increase activities, as tolerated, over 1-2 weeks Sexual Activity: Wait until after follow-up appointment Exercise/Sports: Wait until after follow-up appointment Non-emergency contact: Primary Care Provider and Specialist Call non-emergency contact if: you have any medication questions, your symptoms worsen, your pain is not controlled, your pain is worsening and your temperature is above 101 Follow-up/Referrals: Tiny Lambert [Primary Care Provider] - 01/30/21 10:40 am Azeb Pena MD [Physician] - (as needed; call Dr Pena or Dr Lul Haro's pulmonary office if any concerns) Diet: Regular Addtl Attending Provider Instructions: Ms Glover, You were admitted to the hospital because of difficulty breathing. You were discovered to have a large pocket of fluid in the right chest cavity called a "pleural effusion." This was drained by the lung specialist Dr Pena with a chest tube. We dispatched a blood test called "Quantiferon gold" which returned positive. After numerous other studies it was felt that your pleural effusion was likely due to Tuberculosis (TB) infection. On 01/17/21 we started you on the 4-drug TB regimen of medications. These are listed on the discharge medication list. These medications will be given to you at your home by the [facility] Department. You will need to remain in your home in isolation for 2 weeks. The rifampin medication will cause orange appearing urine and your liver tests will need to be monitored by the health department. For the next 3-4 days you can change the dressing on the former chest tube site with the dressings we gave you. Ok to shower at this time but keep the dressing in place and dry, if possible, while showering. Additional recommendations -- 1. marinol (dronabinol) appetite stimulant - 1 tablet with your evening meal for 7 days then stop 2. ondansetron for nausea - 1 tablet every 8 hours as needed 3. hydrocodone/acetaminophen pain killer - 1 every 6 hours as needed for pain. This contains tylenol so do not take extra tylenol from [id number] * the pain killer can make you sleepy * it can also cause constipation 4. ok to take occasional motrin (ibuprofen) for aches/pains 5. take daily multivitamin 6. take vitamin D capsule once weekly for 7 weeks; first dose on 01/24/21 7. no alcohol 8. no extra [id number] tylenol for now 9. keep using your incentive spirometer for the next 5 days 10. focus on good hydration every day Call the [facility] Department with ANY NEEDS or QUESTIONS at any time. Return to [facility] if - * you are having uncontrolled chest pain * you have severe diarrhea * you have dizziness or lightheadedness * you are short of breath * you have abdominal pains * you have uncontrolled vomiting * any other concerns It was our pleasure caring for you! Please feel better! -Dr Cano Pending Studies at Discharge: Yes Studies:: AFB cultures from sputum, urine, and pleural fluid Stand-Alone Forms: [facility], Smoking Cessation Medications and DC Order Prescriptions: New ethambutol [Myambutol] 400 mg Tablet 800 mg PO DAILY Qty: 1 RF: 0 isoniazid 100 mg Tablet 300 mg PO QAM Qty: 1 RF: 0 pyrazinamide 500 mg Tablet 1,000 mg PO QAM Qty: 2 RF: 0 rifampin 300 mg Capsule 600 mg PO QAM Qty: 2 RF: 0 hydrocodone-acetaminophen 5-325 mg Tablet 1 tab PO Q6H PRN (Reason: chest wall pain) Qty: 14 RF: 0 dronabinol 2.5 mg Capsule 2.5 mg PO QS 7 Days Qty: 7 RF: 0 ondansetron 4 mg tablet,disintegrating 4 mg PO Q8H PRN (Reason: nausea and vomiting) Qty: 10 RF: 0 ergocalciferol (vitamin D2) 1,250 mcg (50,000 unit) capsule 50,000 unit PO .weekly Qty: 7 RF: 0 Continued multivitamin Tablet 1 tab PO DAILY RF: 0 Vitamin C Powder 1 g PO DAILY RF: 0 Discharge Orders: Discharge Order (Routine); Ordered 01/19/21 Ordered By: Inder Murray/Other Patient Handouts: Medicine for Tuberculosis, Tuberculosis (TB), Acid-Fast Bacteria Culture Admission Data Admit Date/Time: 01/12/21 16:26 Attending Provider: Inder Cano Admit Provider: Christy Bal Primary Care Provider: Tiny Lambert Other Providers: Azeb Pena ; Christy Bal ; Nitin Whitehead ; Maritza Davis ; Josh Frederick I. ; Blair Herbert II ; Carmina Chapa ; Mio Perry Other Interventions: Discharge Summary Assessment (RN) Last Done: 01/19/21 16:31 Coding Level of Care Code D/C Day Management >30 mins Diagnoses Tuberculous pleuritis A15.6 Acute respiratory failure with hypoxia J96.01 Positive QuantiFERON-TB Gold test R76.12 Pleural effusion J90 Pneumothorax J95.811 Pneumothorax type: postprocedural Abnormal chest CT R93.89 Hyponatremia E87.1 Lung consolidation J18.1 Anorexia R63.0 Vitamin D deficiency E55.9 Hypotension I95.9 Hyperkalemia E87.5
== END 2021-01-19 17:03 | disposition home or self-care (01) | DRG 177 ==
LOC: ED 11:51 → 2S 16:26 → SUATTDRO 16:26 → 2S 19:30